=== PATIENT | male | born 1935 | race Caucasian/White ===

== ENCOUNTER 2018-03-25 08:53 | Emergency (ER) | payer MEDICARE, MEDICAID ==
[2018-03-25] MEDS ORDERED: HYDROmorphone INJ* 1 MG/ML CARPUJECT SYRINGE IV ONE (09:15)
[2018-03-25] MEDS ORDERED: PROCHLORPERAZINE INJ 5 MG/ML 2 ML VIAL IV PRN (09:15)
[2018-03-25] MEDS ORDERED: Cefepime(*) 1 GM in NS 0.9% 50 ML* 50 ML IVPB ONE (09:16)
[2018-03-25] MEDS ORDERED: PROCHLORPERAZINE INJ 5 MG/ML 2 ML VIAL ONE (09:21)
[2018-03-25] MEDS ORDERED: HYDROmorphone INJ* 2 MG/ML CARPUJECT SYRINGE ONE (09:21)
[2018-03-25] MEDS ORDERED: Cefepime(*) 1 GM in D5W 50 ML BAG* 50 ML IVPB ONE (09:29)
[2018-03-25] MEDS ORDERED: HYDROmorphone INJ* 2 MG/ML CARPUJECT SYRINGE IV SLOW PU ONE (09:36)
[2018-03-25 09:44] LABS: ABS Basophils 0.1 10^3/ul (0-0.2); ABS Eosinophils 0.2 10^3/ul (0-0.6); ABS Lymphocytes 1.3 10^3/ul (1.0-4.8); ABS Monocytes 0.5 10^3/ul (0-0.8); ABS Neutrophils 7.3 10^3/ul (1.5-7.7); ABS Nucleated RBC 0 10^3/ul; Eosinophil % 2.4 % (0-6); Hematocrit 35 % (42-52); Hemoglobin 11.9 g/dl (14.0-18.0); Lymphocyte % 14.1 % (25-47); Mean Corpuscular HGB Conc 34 g/dl (31-36); Mean Corpuscular Hemoglobin 30 pg (27-31); Mean Corpuscular Volume 89 fL (80-94); Mean Platelet Volume 7.4 um3 (7.4-10.4); Nucleated Red Blood Cells % 0.1; Platelet Count 297 10^3/ul (150-450); Red Blood Count 3.92 10^6/ul (4.00-5.40); Red Cell Distribution Width 15 % (10.5-15); White Blood Count 9.4 10^3/ul (3.5-10.8)
--- NOTE | 2018-03-25 09:45 | RAD ---
HISTORY: trauma to right foot COMPARISONS: None VIEWS: 3, Frontal, lateral, and oblique views of the right foot FINDINGS: BONE DENSITY: Normal. BONES: There is no displaced fracture. There are calcaneal enthesophytes. 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 ALIGNMENT: There is no dislocation. SOFT TISSUES: Unremarkable. OTHER FINDINGS: None. IMPRESSION: OSTEOARTHRITIS. NO ACUTE OSSEOUS INJURY. IF SYMPTOMS PERSIST, RECOMMEND REPEAT IMAGING.
[2018-03-25 09:57] LABS: EGFR Non-African American 72.7 (>60)
[2018-03-25] MEDS ORDERED: HYDROmorphone INJ* 2 MG/ML CARPUJECT SYRINGE IV SLOW PU PRN (10:59)
[2018-03-25 11:38] VITALS: BP 132/59
--- NOTE | 2018-03-25 12:07 | ED ---
Ifeanyi Norman Tariq, scribed for Abbe Monk MD on 03/25/18 at 0913 . Lower Extremity - HPI Summary HPI Summary: A 82 y/o male ALEXIS presents to the ED of right foot pain and erythema. Three weeks ago, during work, pt hit and bent his foot on the footrest of the dyson chair. Initially, it hurt, but pain became more severe 40 minutes later, currently, pain is per triage 8/10. In addition, pt notes erythema on the face and thinks he has a bacterial infection there. According to pt, he is borderline DM, however was not prescribed any medications. He has not taken any Abx in well over 2 years. Allergies are latex and Novocaine. - History of Current Complaint Chief Complaint: EDExtremityLower Stated Complaint: RT FOOT PAIN Time Seen by Provider: 03/25/18 09:03 Hx Obtained From: Patient Mechanism Of Injury: Blunt Trauma Onset of Pain: Days Onset/Duration: Worse Since - 3 weeks ago Severity Initially: Severe Severity Currently: Severe Pain Intensity: 8 Pain Scale Used: 0-10 Numeric Timing: Constant, Lasting Weeks Location: Is Discrete @ - Right foot. Associated Signs And Symptoms: Positive: Redness Aggravating Factor(s): Movement - Allergies/Home Medications Allergies/Adverse Reactions: Allergies Allergy/AdvReac Type Severity Reaction Status Date / Time latex Allergy Hives Verified 03/25/18 09:17 procaine [From Novocain] Allergy Itching Verified 03/25/18 09:17 Home Medications: Home Medications Lisinopril TAB* [Prinivil TAB*] 30 mg PO DAILY 03/25/18 [History Confirmed 03/25] PMH/Surg Hx/FS Hx/Imm Hx Cardiovascular History: Reports: Hx Hypertension Respiratory History: Denies: Hx Chronic Obstructive Pulmonary Disease (COPD) Infectious Disease History: No Infectious Disease History: Denies: Traveled Outside the [place] in Last 30 Days - Family History Known Family History: Positive: Other - CVA - Social History 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 Positive: Other - POSITIVE: Facial erythema All Other Systems Reviewed And Are Negative: Yes Physical Exam - Summary Physical Exam Summary: Appearance: The patient is well-nourished in no acute distress and in no acute pain. Skin: Scab area on dorsum of foot. Excoriating lesions on face and scalp. HEENT: The head is normocephalic and atraumatic. The pupils are equal and reactive. The conjunctivae are clear and without drainage. Nares are patent and without drainage. Mouth reveals moist mucous membranes and the throat is without erythema and exudate. The external ears are intact. The ear canals are patent and without drainage. The tympanic membranes are intact. Neck: The neck is supple with full range of motion and non-tender. There are no carotid bruits. There is no neck vein distension. No lymphadenopathy. Respiratory: Chest is non-tender. Lungs are clear to auscultation and breath sounds are symmetrical and equal. Cardiovascular: Heart is regular rate and rhythm. There is no murmur or rub auscultated. There is no peripheral edema and pulses are symmetrical and equal. Abdomen: The abdomen is soft and non-tender. There are normal bowel sounds heard in all four quadrants and there is no organomegaly palpated. Musculoskeletal: There is no back tenderness noted. Extremities are non-tender with full range of motion. There is good capillary refill. There is no peripheral edema or calf tenderness elicited. Erythematous distal dorsum of right foot. Neurological: Patient is alert and oriented to person, place and time. The patient has symmetrical motor strength in all four extremities. Cranial nerves are grossly intact. Deep tendon reflexes are symmetrical and equal in all four extremities. Psychiatric: The patient has an appropriate affect and does not exhibit any anxiety or depression. Triage Information Reviewed: Yes Vital Signs On Initial Exam: Initial Vitals Temp Pulse Resp BP Pulse Ox 98.8 F 74 22 143/91 99 03/25/18 08:57 03/25/18 08:57 03/25/18 08:57 03/25/18 08:57 03/25/18 08:57 Vital Signs Reviewed: Yes Diagnostics - Vital Signs Vital Signs Temp Pulse Resp BP Pulse Ox 03/25/18 08:57 98.8 F 74 22 143/91 99 - Laboratory Lab Results: Lab Results 03/25/18 03/25/18 03/25/18 Range/Units 09:33 09:33 09:33 WBC 9.4 (3.5-10.8) 10^3/ul RBC 3.92 L (4.00-5.40) 10^6/ul Hgb 11.9 L (14.0-18.0) g/dl Hct 35 L (42-52) % MCV 89 (80-94) fL MCH 30 (27-31) pg MCHC 34 (31-36) g/dl RDW 15 (10.5-15) % Plt Count 297 (150-450) 10^3/ul MPV 7.4 (7.4-10.4) um3 Neut % (Auto) 77.6 (38-83) % Lymph % (Auto) 14.1 L (25-47) % Sharkey % (Auto) 5.2 (0-7) % Eos % (Auto) 2.4 (0-6) % Baso % (Auto) 0.7 (0-2) % Absolute Neuts (auto) 7.3 (1.5-7.7) 10^3/ul Absolute Lymphs (auto) 1.3 (1.0-4.8) 10^3/ul Absolute Monos (auto) 0.5 (0-0.8) 10^3/ul Absolute Eos (auto) 0.2 (0-0.6) 10^3/ul Absolute Basos (auto) 0.1 (0-0.2) 10^3/ul Absolute Nucleated RBC 0 10^3/ul Nucleated RBC % 0.1 Sodium 138 (135-145) mmol/L Potassium 4.1 (3.5-5.0) mmol/L Chloride 107 (101-111) mmol/L Carbon Dioxide 23 (22-32) mmol/L Anion Gap 8 (2-11) mmol/L BUN 18 (6-24) mg/dL Creatinine 0.99 (0.67-1.17) mg/dL Est GFR ( Amer) 93.5 (>60) Est GFR (Non-Af Amer) 72.7 (>60) BUN/Creatinine Ratio 18.2 (8-20) Glucose 147 H (70-100) mg/dL Lactic Acid 0.8 (0.5-2.0) mmol/L Calcium 8.6 (8.6-10.3) mg/dL Total Bilirubin 0.30 (0.2-1.0) mg/dL AST 16 (13-39) U/L ALT 19 (7-52) U/L Alkaline Phosphatase 85 (34-104) U/L C-Reactive Protein 184.42 H (< 5.00) mg/L Total Protein 6.1 L (6.4-8.9) g/dL Albumin 2.8 L (3.2-5.2) g/dL Globulin 3.3 (2-4) g/dL Albumin/Globulin Ratio 0.8 L (1-3) Result Diagrams: 03/25/18 09:33 03/25/18 09:33 Lab Statement: Any lab studies that have been ordered have been reviewed, and results considered in the medical decision making process. - Radiology Foot XR Radiology Interpretation Completed By: Radiologist - OSTEOARTHRITIS. NO ACUTE OSSEOUS INJURY. IF SYMPTOMS PERSIST, RECOMMEND REPEAT IMAGING. ED PHYSICIAN REVIEWED THIS RADIOLOGY REPORT. Re-Evaluation - Re-Evaluation First Eval Re-Evaluation Time: 10:58 Comment: Discussed results and discharge Lower Extremity Course/Dx - Course Course Of Treatment: Mr. Montero presents complaining of a painful right foot. His foot was noted to be erythematous, swollen and warm to the touch. His white count was okay and he was not febrile but he did have a markedly elevated CRP. A plain film showed no sign of osteomyelitis. He was given cefepime here in the emergency department and discharged with a prescription for cephalexin and [place]. I recommended that he follow closely with his PCP this week. - Diagnoses Provider Diagnoses: Cellulitis Discharge - Sign-Out/Discharge Documenting (check all that apply): Discharge/Admit/Transfer - Discharge - Discharge Plan Condition: Stable Disposition: HOME Prescriptions: Cephalexin CAP* [Keflex CAP*] 500 mg PO QID #40 cap HYDROcodone/ACETAMIN 5-325 MG* [[place] 5-325 TAB*] 1 tab PO Q6H PRN #20 tab MDD 4 PRN Reason: Pain Patient Education Materials: Cellulitis (ED) Referrals: Campos Frye MD [Primary Care Provider] - 3 Days Additional Instructions: RETURN TO ED FOR ANY NEW OR WORSENING SYMPTOMS - Billing Disposition and Condition Condition: STABLE Disposition: Home The documentation as recorded by the Ifeanyi robles Tariq accurately reflects the service I personally performed and the decisions made by me, Abbe Monk MD.
== END 2018-03-25 11:40 | disposition home or self-care (01) ==
LOC: ED 08:53
DX: L03.90 Cellulitis, unspecified (principal)
CPT/HCPCS: 36415; 80053; 83605; 85025; 86140; 96365; 96375; 99283; J0692; J0780; J1170

== ENCOUNTER 2018-04-02 15:03 | Inpatient (IN) | payer MEDICARE, MEDICAID ==
[2018-04-02] MEDS ORDERED: HYDROcodone/ACETAMIN 5-325 MG* 1 TAB PO ONE (15:39)
[2018-04-02] MEDS ORDERED: Clindamycin 600 MG IVPREMIX(* 600 MG/50 ML SDV IV ONE (15:41)
--- NOTE | 2018-04-02 16:24 | RAD ---
INDICATION: Right foot ulcer x1 month (exact site not specified on requisition) COMPARISON: Foot radiograph dated March 25, 2018 that noted swelling and erythema at the dorsal foot across the metatarsal phalangeal joints TECHNIQUE: 3 views of the right foot were obtained. FINDINGS: The adequately corticated bones are properly aligned. Degenerative changes include sclerotic narrowing and marginal osteophyte formation involving the right great toe metatarsal phalangeal joint. Enthesophytes are noted the calcaneal tubercle. No radiographic findings characteristic of osteomyelitis are seen including cortical bony destruction. On the lateral view there is lucency overlying the dorsal foot at the level of the metatarsal heads. IMPRESSION: 1. DEGENERATIVE CHANGES DESCRIBED ABOVE WITHOUT RADIOGRAPHIC EVIDENCE OF OSTEOMYELITIS. 2. LUCENCY OVER THE DORSAL FOOT COULD CORRESPOND TO A SOFT TISSUE INFECTION. PLEASE CORRELATE TO LOCATION OF THE PATIENT'S FOOT ULCER. If the patient's symptoms persist, follow-up imaging is recommended.
[2018-04-02 16:38] LABS: EGFR Non-African American 47.6 (>60)
[2018-04-02 16:40] LABS: INR 1.02 (0.77-1.02)
[2018-04-02 16:58] LABS: Monocytes % 2 % (0-7)
[2018-04-02 17:00] LABS: Hematocrit 38 % (42-52); Hemoglobin 12.8 g/dl (14.0-18.0); Mean Corpuscular HGB Conc 34 g/dl (31-36); Mean Corpuscular Hemoglobin 30 pg (27-31); Mean Corpuscular Volume 88 fL (80-94); Platelet Count 619 10^3/ul (150-450); Red Blood Count 4.34 10^6/ul (4.00-5.40); Red Cell Distribution Width 15 % (10.5-15); White Blood Count 8.9 10^3/ul (3.5-10.8)
[2018-04-02 17:01] LABS: ABS Neutrophils 6.9 10^3/ul (1.5-7.7); Mean Platelet Volume 7.5 um3 (7.4-10.4)
--- NOTE | 2018-04-02 17:28 | ED ---
Jefferson Norman Tenzin, scribed for Ermias Felton on 04/02/18 at 1542 . Skin Complaint - HPI Summary HPI Summary: Pt is an 82 years old male sent by Dr. Vila to the ED for an infection on the right foot that has not improved for over a month. He is presenting to the ED today complaining of pain in the right foot where the infection is present and also of losing his appetite since taking the antibiotics for the infection. Pt rates the pain at 10/10 in severity currently at the ED. Pt reported that he has taken antibiotics since last week without any sign of improvements. Pt noted that that he did not take any medications for pain today. He notes that he has not eaten anything today. No alleviating or aggravating factors were noted. Pt reports that "I am borderline diabetic". - History of Current Complaint Chief Complaint: EDExtremityLower Time Seen by Provider: 04/02/18 15:23 Stated Complaint: RT FOOT/POSS INFECTION Hx Obtained From: Patient Onset/Duration: Still Present Timing: Lasting Weeks - over 4 weeks. Current Severity: Severe Pain Intensity: 10 Pain Scale Used: 0-10 Numeric Skin Location: Discrete - right foot. Aggravating Symptom(s): Nothing Alleviating Symptom(s): Nothing Associated Signs & Symptoms: Negative - Fever or chills. - Allergy/Home Medications Allergies/Adverse Reactions: Allergies Allergy/AdvReac Type Severity Reaction Status Date / Time latex Allergy Hives Verified 04/02/18 15:11 procaine [From Novocain] Allergy Itching Verified 04/02/18 15:11 Home Medications: Home Medications [id number] Es (Nf) [Excedrin Extra Strength 250-250-65 mg (NF)] 2 tab PO Q6H PRN 04/02/18 [History Confirmed 04/02/18] Multivit-Mins/Iron/Folic/Lycop [Centrum Ultra Mens] 1 tab PO DAILY 04/02/18 [ History Confirmed 04/02/18] oxyCODONE/Acetam5/325MG PREPAK [Percocet 5/325 TAB*] 1 tab PO Q6H PRN 04/02/18 [ History Confirmed 04/02/18] PMH/Surg Hx/FS Hx/Imm Hx Endocrine/Hematology History: Denies: Hx Diabetes Cardiovascular History: Reports: Hx Hypertension Respiratory History: Denies: Hx Chronic Obstructive Pulmonary Disease (COPD) Infectious Disease History: No Infectious Disease History: Denies: Traveled Outside the [place] in Last 30 Days - Family History Known Family History: Positive: Other - CVA - Social History Alcohol Use: Rare Substance Use Type: Reports: None Hx Tobacco Use: Yes Smoking Status (MU): Former Smoker Review of Systems Positive: Other - losing appetite from the antibiotics he has been prescribed. . Negative: Fever, Chills Positive: Other - pain in the right foot from the infection. Positive: Other - ulcer on the right foot. All Other Systems Reviewed And Are Negative: Yes Physical Exam - Summary Physical Exam Summary: Appearance: Well appearing, no pain distress Skin: warm, dry, 3/4 cm ulcers on the dorsum of the right foot with mild swelling. Head/face: normal Eyes: EOMI, MARA ENT: normal Neck: supple, non-tender Respiratory: CTA, breath sounds present Cardiovascular: RRR, pulses symmetrical Abdomen: non-tender, soft Bowel: present Musculoskeletal: Tenderness and swelling on the right foot with ulcer on the dorsum, Neuro: normal, sensory motor intact, A&Ox3 Triage Information Reviewed: Yes Vital Signs On Initial Exam: Initial Vitals Temp Pulse Resp BP Pulse Ox 97.8 F 66 17 119/65 100 04/02/18 15:05 04/02/18 15:05 04/02/18 15:05 04/02/18 15:05 04/02/18 15:05 Vital Signs Reviewed: Yes Diagnostics - Vital Signs Vital Signs Temp Pulse Resp BP Pulse Ox 04/02/18 15:24 59 99 04/02/18 15:23 57 99 04/02/18 15:05 97.8 F 66 17 119/65 100 - Laboratory Lab Results: Lab Results 04/02/18 04/02/18 04/02/18 Range/Units 16:10 16:10 16:10 WBC 8.9 (3.5-10.8) 10^3/ul RBC 4.34 (4.00-5.40) 10^6/ul Hgb 12.8 L (14.0-18.0) g/dl Hct 38 L (42-52) % MCV 88 (80-94) fL MCH 30 (27-31) pg MCHC 34 (31-36) g/dl RDW 15 (10.5-15) % Plt Count 619 H D (150-450) 10^3/ul MPV 7.5 (7.4-10.4) um3 Absolute Neuts (auto) 6.9 (1.5-7.7) 10^3/ul Immature Gran % 10 H (0-9) % Neutrophils % 75 (38-83) % Band Neutrophils % 10 H (0-8) % Lymphocytes % 10 L (25-47) % Reactive Lymphs % 1 (0-6) % Monocytes % 2 (0-7) % Eosinophils % 2 (0-6) % Basophils % 0 (0-2) % Abs Neuts (Manual) 6.7 (1.5-7.7) 10^3/ul Abs Lymphs (Manual) 0.9 L (1.0-4.8) 10^3/ul Abs Monocytes (Manual) 0.2 (0-0.8) 10^3/ul Absolute Eos (Manual) 0.2 (0-0.6) 10^3/ul Abs Basophils (Manual) 0 (0-0.2) 10^3/ul Normal RBC Morphology Normal (Normal) INR (Anticoag Therapy) 1.02 (0.77-1.02) APTT 32.8 (26.0-36.3) seconds Sodium 138 (135-145) mmol/L Potassium 4.6 (3.5-5.0) mmol/L Chloride 102 (101-111) mmol/L Carbon Dioxide 25 (22-32) mmol/L Anion Gap 11 (2-11) mmol/L BUN 20 (6-24) mg/dL Creatinine 1.43 H (0.67-1.17) mg/dL Est GFR ( Amer) 57.6 (>60) Est GFR (Non-Af Amer) 47.6 (>60) BUN/Creatinine Ratio 14.0 (8-20) Glucose 100 (70-100) mg/dL Lactic Acid (0.5-2.0) mmol/L Calcium 9.5 (8.6-10.3) mg/dL Total Bilirubin 0.20 (0.2-1.0) mg/dL AST 32 (13-39) U/L ALT 29 (7-52) U/L Alkaline Phosphatase 159 H (34-104) U/L Total Protein 7.6 (6.4-8.9) g/dL Albumin 3.6 (3.2-5.2) g/dL Globulin 4.0 (2-4) g/dL Albumin/Globulin Ratio 0.9 L (1-3) 06/25/18 Range/Units 16:10 WBC (3.5-10.8) 10^3/ul RBC (4.00-5.40) 10^6/ul Hgb (14.0-18.0) g/dl Hct (42-52) % MCV (80-94) fL MCH (27-31) pg MCHC (31-36) g/dl RDW (10.5-15) % Plt Count (150-450) 10^3/ul MPV (7.4-10.4) um3 Absolute Neuts (auto) (1.5-7.7) 10^3/ul Immature Gran % (0-9) % Neutrophils % (38-83) % Band Neutrophils % (0-8) % Lymphocytes % (25-47) % Reactive Lymphs % (0-6) % Monocytes % (0-7) % Eosinophils % (0-6) % Basophils % (0-2) % Abs Neuts (Manual) (1.5-7.7) 10^3/ul Abs Lymphs (Manual) (1.0-4.8) 10^3/ul Abs Monocytes (Manual) (0-0.8) 10^3/ul Absolute Eos (Manual) (0-0.6) 10^3/ul Abs Basophils (Manual) (0-0.2) 10^3/ul Normal RBC Morphology (Normal) INR (Anticoag Therapy) (0.77-1.02) APTT (26.0-36.3) seconds Sodium (135-145) mmol/L Potassium (3.5-5.0) mmol/L Chloride (101-111) mmol/L Carbon Dioxide (22-32) mmol/L Anion Gap (2-11) mmol/L BUN (6-24) mg/dL Creatinine (0.67-1.17) mg/dL Est GFR ( Amer) (>60) Est GFR (Non-Af Amer) (>60) BUN/Creatinine Ratio (8-20) Glucose (70-100) mg/dL Lactic Acid 1.3 (0.5-2.0) mmol/L Calcium (8.6-10.3) mg/dL Total Bilirubin (0.2-1.0) mg/dL AST (13-39) U/L ALT (7-52) U/L Alkaline Phosphatase (34-104) U/L Total Protein (6.4-8.9) g/dL Albumin (3.2-5.2) g/dL Globulin (2-4) g/dL Albumin/Globulin Ratio (1-3) Result Diagrams: 04/02/18 16:10 04/02/18 16:10 Lab Statement: Any lab studies that have been ordered have been reviewed, and results considered in the medical decision making process. - Radiology FOOT X RAY Radiology Interpretation Completed By: Radiologist - IMPRESSION: 1. DEGENERATIVE CHANGES DESCRIBED ABOVE WITHOUT RADIOGRAPHIC EVIDENCE OF OSTEOMYELITIS. 2. LUCENCY OVER THE DORSAL FOOT COULD CORRESPOND TO A SOFT TISSUE INFECTION. PLEASE CORRELATE TO LOCATION OF THE PATIENT'S FOOT ULCER. If the patient's symptoms persist, follow-up imaging is recommended. Course/Dx - Course Course Of Treatment: Pt is an 82 years old male sent by Dr. Vila to the ED for an infection on the right foot that has not improved for over a month. Pt reported that he was prescribed with antibiotics since last week without any sign of improvements. Bloodwork and UA is obtained. Right foot X ray is taken. Consulted with hospitalist Dr. Swann and pt will be admitted. - Differential Diagnoses - Skin Complaint Differential Diagnoses: Cellulitis, Other - ulcer foot/osteomyelitis - Diagnoses Provider Diagnoses: Cellulitis of foot, right Discharge - Sign-Out/Discharge Documenting (check all that apply): Discharge/Admit/Transfer - Admitted. - Discharge Plan Condition: Stable Disposition: ADMITTED TO [facility] Referrals: Campos Frye MD [Primary Care Provider] - - Billing Disposition and Condition Condition: STABLE Disposition: Admitted to [facility] The documentation as recorded by the Jefferson robles Tenzin accurately reflects the service I personally performed and the decisions made by , Ermias Felton.
[2018-04-02] MEDS ORDERED: Morphine VIAL* 4 MG/ML VIAL (1 ml vial) IV PRN (17:40)
[2018-04-02] MEDS ORDERED: hydrALAZINE IV* 20 MG/ML VIAL IV SLOW PU PRN (17:57)
[2018-04-02] MEDS ORDERED: Vancomycin per Pharmacy* NOTE FOLLOW UP SCH (18:00)
[2018-04-02] MEDS ORDERED: Vancomycin(*) 1,250 MG in NS 0.9% 250 ML* 250 ML IVPB ONE (19:30)
[2018-04-02] MEDS: oxyCODONE/Acetamin 5/325 MG* TAB PO PRN (21:45)
[2018-04-02] MEDS: Heparin VIAL(*) 5000 UNITS/ML VIAL (FIVE THOUSAND) SUBCUT SCH (21:54)
--- NOTE | 2018-04-02 23:42 | HP ---
HOSPITAL MEDICINE HISTORY AND PHYSICAL: DATE OF ADMISSION: 04/02/18 ATTENDING PHYSICIAN: Dr. Lai Swann * (dictation provided by Esther Nunes NP ). CHIEF COMPLAINT: Non-healing right foot ulcer. HISTORY OF PRESENT ILLNESS: Mr. Montero is an 82-year-old male with a past medical history of hypertension, who presents today to the hospital with a 1- month history of a right foot ulcer. Mr. Montero states he first started having problems about 3 to 4 weeks ago, at that time he followed with his primary care physician, Dr. Frye and was started on Keflex. He notes that he has followed up about [address] Frye and had taken about half of a prescription for Keflex when he was referred to [facility] for poor healing and further evaluation. He was seen on 03/28/[address] Pereira in followup of an emergency room visit for the same ulcer. At that point, he had I and D of an abscess and packing and the patient was continued on Keflex. The patient was seen again on 03/29/18 in followup and cultures were preliminarily growing Staph aureus. The patient was seen again on 03/30/18, and he was switched to Bactrim and referred to Dr. Wilson's office for consultation per orthopedic services. The patient was seen at Dr. Wilson's office today, 04/02. Despite being on Bactrim for MRSA the foot continued to worsen. The patient denies fevers or chills. Dr. Wilson recommended that the patient be admitted to [facility] for more expeditious workup including an MRI, ABIs and IV antibiotics. In addition, Dr. Tinajero was consulted from Infectious Diseases. In the emergency room, Mr. Montero had labs that showed that his white blood cell count was 8.9. His CRP and ESR are pending. He had a grossly infected right foot. He had x-ray that showed no evidence of osteomyelitis. His vital signs are stable. He is afebrile. PAST MEDICAL HISTORY: 1. Hypertension. 2. Reported borderline diabetes. MEDICATIONS: 1. Excedrin p.r.n. 2. Lisinopril 30 mg p.o. daily. 3. Bactrim DS 1 tab p.o. b.i.d. 4. Oxycodone/acetaminophen 5/325 mg 1 tab p.o. every 6 hours p.r.n. pain. ALLERGIES: To LATEX and PROCAINE. FAMILY HISTORY: Reviewed and noncontributory. SOCIAL HISTORY: No report of drug use. The patient drinks wine, but not on a nightly basis and he has not drunk for over a month since his foot became infected. Tobacco use, the patient reports he smokes about 1 pack of cigarettes every 4 to 5 days. He reports that his friend, Miguel Scott, will be healthcare proxy. REVIEW OF SYSTEMS: A 14-point review of systems was completed with Mr. Montero and all those not mentioned above were negative. PHYSICAL EXAMINATION GENERAL: Mr. Montero is sitting in the bed. He is in no acute distress. VITAL SIGNS: Temperature 97.8, pulse rate 59, respiratory rate 17, O2 saturation is 99% on room air, blood pressure 130/66. LUNGS: Clear to auscultation bilaterally with no accessory muscle use and good aeration. HEART: S1, S2 with systolic murmur at the fifth intercostal space and mid clavicular line radiating into the axilla and is regular. ABDOMEN: Soft, nontender with bowel sounds positive x4. EXTREMITIES: No cyanosis. Positive for lower extremity edema in and around the right foot only. NEURO: He is alert. He is oriented x3. He moves all extremities equally. There is no facial asymmetry or focal weakness. Extraocular movements are intact. SKIN: The patient has multiple healing excoriations to his face. There is a couple scattered on his back, but none noted on his torso or legs. He has about 2 x 1 inch ulceration to the dorsal aspect of his right foot at the first MTP of the great toe. There is a surrounding dark red to dark purple erythema. The foot is warm. I am not able to assess the fine pulses, but again the foot is warm, there is good sensation, good motion. The left foot is cool to touch after I have taken off the sock. The pulses are 2+. DIAGNOSTIC STUDIES/LAB DATA: Sodium 138, potassium 4.6, chloride 102, serum bicarbonate 25, BUN 20, creatinine 1.43, lactic acid 1.3. WBC 8.9, hemoglobin 12.8, hematocrit 38, platelet count 619. ASSESSMENT: Mr. Montero is an 82-year-old male with a past medical history of hypertension, who presents today to the hospital with a nonhealing right foot ulcer after 1 month of therapy, found to have Methicillin-resistant Staphylococcus aureus infection outpatient with no improvement on appropriate therapy with Bactrim. Our plans are for inpatient admission for the followin. Right foot ulcer. The patient will be treated with vancomycin. Appreciate consultation from Dr. Wilson and his team, who will be following the patient inpatient. I have also consulted with Dr. Tinajero from Infectious Diseases. Dr. Wilson has also recommended ordering ABIs, which have been done, and we have also ordered MRI of that foot. At this time, the patient showed no evidence of systemic illness. His blood cultures have been drawn. If his blood cultures are positive, we will pursue echocardiogram and further workup as needed. 2. Hypertension. Plan to hold lisinopril for now given new elevation in creatinine. 3. Acute kidney injury. The patient's creatinine is 1.43, which is up from his baseline. I will plan to hold lisinopril. The patient will have hydralazine p.r.n. for elevated BP and we can resume lisinopril when and if his creatinine improves. I will add on urine sodium and creatinine to further assess his kidney function. 4. Question mild diabetes. Per the patient report, he does not have a diagnosis of diabetes, but I am checking hemoglobin A1c. His glucose today is 100 on random check. 5. Code status is full code. TIME SPENT: Approximately 60 minutes were spent in the admission of this patient, more than half time spent with the patient at the bedside reviewing the events leading up to this hospitalization, performing the physical examination and reviewing my plan of care. ESTHER NUNES, REUBEN [id number]/[facility] #: [id number] MRAIA E
[2018-04-02] MEDS ORDERED: Calcium Carbonate CHEW TAB* 500 MG (TUMS) PO ONE (23:49)
[2018-04-03] MEDS ORDERED: Ondansetron 40 MG VIAL* 2 MG/ML 20 ML VIAL IV PRN (01:50)
[2018-04-03] MEDS: Omeprazole CAP* 20 MG PO SCH ×2 (02:19→05:57)
[2018-04-03] MEDS: oxyCODONE/Acetamin 5/325 MG* TAB PO PRN ×4 (05:57→21:02)
[2018-04-03] MEDS: Heparin VIAL(*) 5000 UNITS/ML VIAL (FIVE THOUSAND) SUBCUT SCH ×3 (05:58→22:24)
[2018-04-03] MEDS ORDERED: Omeprazole CAP* 20 MG PO SCH (06:00)
[2018-04-03 08:34] LABS: ABS Basophils 0.1 10^3/ul (0-0.2); ABS Eosinophils 0.3 10^3/ul (0-0.6); ABS Lymphocytes 1.6 10^3/ul (1.0-4.8); ABS Monocytes 0.5 10^3/ul (0-0.8); ABS Neutrophils 5.3 10^3/ul (1.5-7.7); ABS Nucleated RBC 0 10^3/ul; Eosinophil % 3.7 % (0-6); Hematocrit 33 % (42-52); Hemoglobin 11.1 g/dl (14.0-18.0); Lymphocyte % 20.5 % (25-47); Mean Corpuscular HGB Conc 34 g/dl (31-36); Mean Corpuscular Hemoglobin 30 pg (27-31); Mean Corpuscular Volume 88 fL (80-94); Mean Platelet Volume 7.4 um3 (7.4-10.4); Nucleated Red Blood Cells % 0; Platelet Count 460 10^3/ul (150-450); Red Blood Count 3.76 10^6/ul (4.00-5.40); Red Cell Distribution Width 15 % (10.5-15); White Blood Count 7.8 10^3/ul (3.5-10.8)
[2018-04-03 08:55] LABS: EGFR Non-African American 51.7 (>60)
[2018-04-03] MEDS ORDERED: Lisinopril TAB* 10 MG PO SCH (09:00)
--- NOTE | 2018-04-03 13:25 | PN ---
Subjective Date of Service: 04/03/18 Interval History: Patient seen and examined at bedside. Denies fever, chills, shortness of breath , chest discomfort, N/V/D. Pt states that he has been dealing with this foot ulcer for a few months. He declined to have the dressing removed so I could evaluate the wound. Family History: Unchanged from Admission Social History: Unchanged from Admission Past Medical History: Unchanged from Admission Objective Active Medications: Acetaminophen (Tylenol Tab*) 650 mg PO Q6H PRN Reason: Pain/fever Heparin Sodium (Porcine) (Heparin Vial(*)) 5,000 units SUBCUT Q8HR [facility] Hydralazine HCl (Apresoline Iv*) 5 mg IV SLOW PU Q6H PRN Reason: SBP > 180 Vancomycin HCl 1,000 mg/ (Sodium Chloride) 250 mls @ 166.667 mls/hr IVPB Q24H [facility] Morphine Sulfate (Morphine Vial*) 4 mg IV Q4H PRN Reason: PAIN Omeprazole (Prilosec Cap*) 20 mg PO DAILY@0600 [facility] Ondansetron HCl (Zofran 40 Mg Vial*) 4 mg IV Q6H PRN Reason: NAUSEA Oxycodone/Acetaminophen (Percocet 5/325 Tab*) 1 tab PO Q4H PRNReason: PAIN Oxycodone/Acetaminophen (Percocet 5/325 Tab*) 2 tab PO Q4H PRN Reason: PAIN Pharmacy Consult (Vancomycin Per Pharmacy*) 1 note FOLLOW UP .VANC PER PHARMACY [facility] Pharmacy Profile Note (Vancomycin Trough Check) 1 note FOLLOW UP 2029 Stop: 04/05/18 20:31 Vital Signs - 8 hr 04/03/18 04/03/18 04/03/18 05:57 07:23 10:11 Temperature 98.1 F Pulse Rate 56 Respiratory 18 14 18 Rate Blood Pressure 100/53 (mmHg) O2 Sat by Pulse 100 Oximetry Oxygen Devices in Use Now: None Appearance: NAD, sitting up on the side of the bed Ears/Nose/Mouth/Throat: Mucous Membranes Moist Respiratory: Symmetrical Chest Expansion and Respiratory Effort, Clear to Auscultation Cardiovascular: NL Sounds; No Murmurs; No JVD, RRR Abdominal: NL Sounds; No Tenderness; No Distention Extremities: No Edema Skin: - - Dressing to right foot clean, dry and intact Neurological: Alert and Oriented x 3, NL Muscle Strength and Tone Lines/Tubes/Other Access: Clean, Dry and Intact Peripheral IV - site benign Nutrition: Taking PO's Result Diagrams: 04/03/18 08:22 04/03/18 08:22 Additional Lab and Data: . Microbiology and Other Data: Microbiology 04/02/18 16:10 Gram Stain - Final Foot Right Assess/Plan/Problems-Billing Assessment: Mr. Montero is an 82 yo male with PMH significant for HTN and borderline DM who presented to the hospital with a right foot non-healing ulcer. - Patient Problems (1) Right foot ulcer Code(s): L97.519 - NON-PRS CHRONIC ULCER OTH PRT RIGHT FOOT W UNSP SEVERITY SNOMED Code(s): 41306199 Comment: - Present at least 1 month, possibly longer - Borderline DM - Afebrile and no leukocytosos - Blood cultures no growth day 1 - Ortho consult, input appreciated - ID consult, pending - MRI and ABIs pending - Continue Vanco (2) LINK (acute kidney injury) Code(s): N17.9 - ACUTE KIDNEY FAILURE, UNSPECIFIED SNOMED Code(s): 90045996 Comment: - Slight improvement - With mild hyperkalemia - Will give gentle IVFs overnight - Continue to hold lisinopril and avoid nephrotoxic medications (3) Borderline diabetes mellitus Code(s): R73.03 - PREDIABETES SNOMED Code(s): 621034962 Comment: - HgA1C 6.9 (4) HTN (hypertension) Code(s): I10 - ESSENTIAL (PRIMARY) HYPERTENSION SNOMED Code(s): 06343577 Comment: - Mostly normotensive, SBP 90-130's - Continue to hold lisinopril in the setting of LINK - Continue hydralazine PRN (5) DVT prophylaxis Code(s): CID2372 - SNOMED Code(s): 548686113 Comment: - SQ heparin (6) Full code status Code(s): Z78.9 - OTHER SPECIFIED HEALTH STATUS SNOMED Code(s): 689574203 Status and Disposition: Inpatient. Discharge to home when medically stable.
--- NOTE | 2018-04-03 14:58 | PN ---
Progress Note - Progress Note Date of Service: 04/03/18 SOAP: Subjective: [Pt was seen this afternoon while walking back to his bed from the bathroom. Pt states that his pain is much improved. He feels much better and feels more awake. Pt denies any chest pain, SOB, numbness, tingling, nausea or vomiting. ] Objective: [General: Awake, alert and oriented, NAD, skin of the face has multiple abrasions present. MSK, RLE: Inspection of the right foot reveals a dressing that is clean, dry and intact. +df/ pf. Able to slightly wiggle toes. Sensation is intact to pain in the right foot. calf is soft and non tender. ] Vital Signs Temp 98.1 F 04/03/18 07:23 Pulse 56 04/03/18 07:23 Resp 18 04/03/18 14:22 BP 100/53 04/03/18 07:23 Pulse Ox 100 04/03/18 07:23 Intake & Output 04/02/18 04/03/18 04/03/18 18:59 06:59 18:59 Intake Total 50 280 640 Output Total 0 Balance 50 280 640 Weight 162 lb 145 lb 11.2 oz Intake: IV Fluids 50 30 NS (0.9%) 30 IVPB 250 ABX - VANCOMYCIN 250 Oral 0 640 Output: Urine 0 Other: # Bowel Movements 0 1 Estimated Stool Amount Medium # Voids 0 Assessment: [Right foot infection] Plan: [- Continue with current anticoagulation - MRI and CATHRYN today - Continue with current abx - Continue with current pain medication. ]
--- NOTE | 2018-04-03 15:28 | RAD ---
INDICATION: 82-year-old with nonhealing right foot ulcer - RUFUS read COMPARISON: None TECHNIQUE: Ankle brachial indices were calculated with Doppler waveform analysis of the dorsalis pedis and posterior tibial arteries. The right ankle-brachial index is calculated at 1.0. Waveform analysis shows a biphasic and mildly dampened right posterior tibial waveform and a normal amplitude biphasic right dorsalis pedis waveform. The left ankle-brachial index is calculated at 1.0. Waveform analysis shows mildly dampened triphasic waveforms . Toe brachial indices are mildly depressed bilaterally measuring 0.6 in writing 0.6 on the left IMPRESSION: THERE IS MILD BILATERAL PERIPHERAL VASCULAR DISEASE ON THE BASIS OF WAVEFORM ANALYSIS BUT THE ANKLE-BRACHIAL INDICES FALL WITHIN NORMAL LIMITS MEASURING 1.0 BILATERALLY.
--- NOTE | 2018-04-03 16:09 | RAD ---
Indication: RIGHT foot MRSA infection. Wound for one month. Comparison: April 03, 2018 ankle-brachial indices and April 02, 2018 RIGHT foot radiographs. Technique: [employer] 1.5 Claritza [id number] with GEM suite. Noncontrast MRI RIGHT foot. Report: Shallow soft tissue ulcer dorsal surface of the forefoot at level of first metatarsal phalangeal joint. Contiguous with the soft tissue ulcer there is extensive superficial and deep soft tissue edema and irregularly margined loculated T2 hyperintense 4.3 cm AP by 2.3 cm transverse by 2.4 cm cephalocaudal fluid collection within the intrinsic musculature of the foot subjacent to the first and second metatarsals concerning for abscess. This fluid collection is deep to the plantar flexor tendons. There is T2 hyperintensity at the first metatarsal, medial lateral first metatarsal phalangeal joint sesamoid bones, and proximal phalanx with corresponding partial loss of normal T1 marrow hyperintensity. No fracture evident. 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 Smith images saved on the [facility] PACS. IMPRESSION: The constellation of findings given the clinical context is most consistent with superficial and deep soft tissue infection subjacent to the dorsal skin ulcer with contiguous osteomyelitis involving the first metatarsal, sesamoid bones, and first proximal phalanx and loculated soft tissue abscess collection estimated at approximate 13 mL total volume.
[2018-04-03] MEDS: Vancomycin(*) 1,000 MG in NS 0.9% 250 ML* 250 ML IVPB SCH (21:01)
--- NOTE | 2018-04-04 00:15 | CONS ---
CONSULTATION REPORT: DATE OF CONSULT: 04/03/18. REQUESTING PHYSICIAN: Dr. Wilson. CONSULTING SERVICE: Infectious Disease. REASON FOR CONSULT: Right foot infection. IMPRESSION: 1. Acute osteomyelitis, right distal first metatarsal and proximal phalanx with associated cellulitis and chronic non-pressure related wound. Given the sudden onset of initial symptoms and the location, underlying gout is a consideration. He now though has the aforementioned infections due to methicillin resistant Staphylococcus aureus. 2. Peripheral vascular disease. RECOMMENDATIONS: Agree with vancomycin goal trough 15 to 20. Based on the MRI findings including soft tissue involvement and degree of the wound, he would need that in conjunction with at least debridement. He is considering his options currently. Will plan on a longer course of IV antibiotics probably at the infusion center since he lives across the road. HISTORY OF PRESENT ILLNESS: This is an 82-year-old man, admitted with a right foot infection. About a month ago, he bumped his foot and then a couple of hours later noticed severe redness and pain adjacent to the first toe, so bad that he could not bear weight. He was seen by his primary doctor, prescribed Keflex without much improvement, eventually got to see Orthopedics after an ER stay. He had incision and debridement of the wound there and the culture was sent, grew MRSA. He was eventually switched to Bactrim, saw Dr. Wilson. He was directed to the hospital yesterday. Started on vancomycin, had an MRI, showed osteomyelitis, cellulitis, abscess about the first MTP joint. He has significant pain in that foot. He has no neuropathy or diabetes that he knows of. Never been told he had gout in the past. No fever here. PAST MEDICAL HISTORY: Hypertension. ALLERGIES: To LATEX and PROCAINE. MEDICATIONS: 1. Tylenol. 2. Calcium. 3. Heparin subcutaneous injection. 4. Omeprazole. 5. Vicodin as needed. 6. Vancomycin 1 g every 24 hours. 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 He lives in [address]. No sick contacts. FAMILY HISTORY: No recurrent infections. REVIEW OF SYSTEMS: All negative except as noted above in the history of present illness, 14-point review. PHYSICAL EXAM: Vital Signs: Temperature 37, heart rate 55, respiratory rate 18 , blood pressure 100/50, oxygen saturation 97% on room air. In general, he is awake, not in distress. Neurologic: He is oriented x3. Follows all commands, moves all extremities. Sensation is intact to light touch in both feet. HEENT : There is no thrush. Neck is supple without mass. Heart has regular rate and rhythm without murmurs, rubs, or gallops. Lungs are clear to auscultation bilaterally. Abdomen: Soft, nontender, nondistended. There are bowel sounds present. Skin: There is no rash or splinter hemorrhages. Musculoskeletal: There is no spine tenderness to palpation. On right foot dorsal MTP joint, there is a centimeter ulceration with surrounding erythema, edema and tenderness with some seropurulent drainage. Erythema up into the great toe. LABORATORY DATA: White blood cell count 7, hemoglobin 11, platelets 460. Creatinine is 1.3. CRP 50. Please see impressions and recommendations outlined above, which I have discussed with Dr. Wilson. Thanks for asking me to see Mr. Montero in consultation. [id number]/CPS #: [id number] MTDD
[2018-04-04] MEDS: oxyCODONE/Acetamin 5/325 MG* TAB PO PRN ×4 (02:35→20:05)
[2018-04-04] MEDS: Heparin VIAL(*) 5000 UNITS/ML VIAL (FIVE THOUSAND) SUBCUT SCH ×3 (06:13→22:12)
[2018-04-04] MEDS: Omeprazole CAP* 20 MG PO SCH (06:13)
[2018-04-04] MEDS: NS 0.9% 1000 ML* 1,000 ML IV SCH (06:44)
[2018-04-04 07:17] LABS: EGFR Non-African American 47.6 (>60)
--- NOTE | 2018-04-04 10:37 | PN ---
Progress Note - Progress Note Date of Service: 04/04/18 SOAP: Subjective: CC: right foot infection HPI: 82 yo man with CKD, right foot ulcer, pain, redness. Pain a little better keeping elevated. No fever, rash, or diarrhea. Pondering his surgical options. Objective: Vital Signs Temp 36.2 C 04/04/18 07:56 Pulse 51 04/04/18 07:56 Resp 16 04/04/18 08:48 BP 109/53 04/04/18 07:56 Pulse Ox 98 04/04/18 07:56 Intake & Output 04/03/18 04/04/18 04/04/18 18:59 06:59 18:59 Intake Total 990 830 Output Total 0 Balance 990 830 Weight 145 lb 11.2 oz Intake: IV Fluids 30 NS (0.9%) 30 IVPB 250 ABX - VANCOMYCIN 250 Oral 990 550 Output: Urine 0 Other: Estimated Void Medium # Bowel Movements 1 1 Estimated Stool Amount Medium Small # Voids 1 Gen:awake, no distress HEENT: no thrush Heart:RRR no murmur Lungs:CTA BL Abd:+BS NTND soft Skin: no rash MSK: R dorsal 1st MTP ulcer with surrounding erythema and tenderness Laboratory Results - last 24 hr 04/02/18 04/04/18 16:13 06:38 Sodium 139 Potassium 5.2 H Chloride 109 Carbon Dioxide 24 Anion Gap 6 BUN 25 H Creatinine 1.43 H Est GFR ( Amer) 57.6 Est GFR (Non-Af Amer) 47.6 BUN/Creatinine Ratio 17.5 Glucose 99 Hemoglobin A1c 6.9 H Calcium 8.4 L Assessment: 1. 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 chronic kidney disease 3. T2DM Plan: 1. continue vancomycin goal tr 15-20, he is considering I&D vs amp; IV antibiotics to follow in either case 35 minutes floor time >50% face to face in counseling regarding options to preserve foot
--- NOTE | 2018-04-04 10:37 | PN ---
Progress Note - Progress Note Date of Service: 04/04/18 Note: I saw and examined Federico this morning. Please see my office note from Monday for the full history and physical examination. In brief, he has had a worsening right foot infection for about a month. This has been worsening despite oral antibiotics and an in-office I&D by Dr. Pereira. I sent him to the emergency room on Monday for an admission, IV antibiotics, infectious disease consult, ABIs, and an MRI. His CRP is 50. His MRI does show osteomyelitis of the first toe and first metatarsal, as well as a deep abscess. His CATHRYN is 1.0, but the toe brachial index is 0.6. I spoke with Federico and his partner at length about the situation. This is a serious infection, which I explained in detail, both in the hospital as well as in the office on Monday. The MRI does show what I was worried about, which is a deep abscess and osteomyelitis. We discussed various treatment options for a long time today. We did discuss treatment with just antibiotics, which I feel is insufficient, given the abscess. We also discussed performing an irrigation and debridement of the ulcer and abscess and placement of a wound VAC , followed by a course of IV antibiotics. I did explain that sometimes this is insufficient in the setting of osteomyelitis, but does give him a chance of maintaining the first ray. We also discussed a first ray amputation. We spent a long time discussing the pros/cons and risks/benefits of each of these options. After this discussion, he was leaning towards an irrigation and debridement and placement of a wound VAC, followed by IV antibiotics. I did explain at length, that there is a good chance the infection will not fully be cleared with this course, given the presence of osteomyelitis. He did understand this. He will think about it further, and discuss further with his partner, and let me know tomorrow what his final decision is. For now, we will plan on an irrigation and debridement tomorrow. If he decides that he does want to move forward with a first ray amputation, then we would do this instead tomorrow. Please make him n.p.o. at midnight tonight, for the OR tomorrow. I do appreciate his great medical care as well as Dr. Tinajero's input from infectious diseases. Aung Royal MD
--- NOTE | 2018-04-04 16:06 | PN ---
Subjective Date of Service: 04/04/18 Interval History: Seen with partner at bedside Leaning away from amputation tomorrow Pain controlled with meds. Denies CP/SOB Does not like the beeping associated with fluids. Family History: Unchanged from Admission Social History: Unchanged from Admission Past Medical History: Unchanged from Admission Objective Active Medications: Acetaminophen (Tylenol Tab*) 650 mg PO Q6H PRN PRN Reason: Pain/fever Buspirone HCl (Buspar Tab*) 10 mg PO TID [facility] Heparin Sodium (Porcine) (Heparin Vial(*)) 5,000 units SUBCUT Q8HR [facility] Stop: 04/04/18 23:59 Last Admin: 04/04/18 14:24 Dose: 5,000 units Hydralazine HCl (Apresoline Iv*) 5 mg IV SLOW PU Q6H PRN PRN Reason: SBP > 180 Vancomycin HCl 1,000 mg/ (Sodium Chloride) 250 mls @ 166.667 mls/hr IVPB Q24H [facility] Last Admin: 04/03/18 21:01 Dose: 166.667 mls/hr Sodium Chloride (Ns 0.9% 1000 Ml*) 1,000 mls @ 75 mls/hr IV PER RATE [facility] Last Admin: 04/04/18 06:44 Dose: 75 mls/hr Morphine Sulfate (Morphine Vial*) 4 mg IV Q4H PRN PRN Reason: PAIN Last Admin: 04/02/18 23:58 Dose: 4 mg Omeprazole (Prilosec Cap*) 20 mg PO DAILY@0600 [facility] Last Admin: 04/04/18 06:13 Dose: 20 mg Ondansetron HCl (Zofran 40 Mg Vial*) 4 mg IV Q6H PRN PRN Reason: NAUSEA Last Admin: 04/03/18 02:19 Dose: 4 mg Oxycodone/Acetaminophen (Percocet 5/325 Tab*) 1 tab PO Q4H PRN PRN Reason: PAIN Last Admin: 04/03/18 14:22 Dose: 1 tab Oxycodone/Acetaminophen (Percocet 5/325 Tab*) 2 tab PO Q4H PRN PRN Reason: PAIN Last Admin: 04/04/18 15:20 Dose: 2 tab Pharmacy Consult (Vancomycin Per Pharmacy*) 1 note FOLLOW UP .VANC PER PHARMACY [facility] Pharmacy Profile Note (Vancomycin Trough Check) 1 note FOLLOW UP 2029 ONE Stop: 04/05/18 20:31 Vital Signs - 8 hr 04/04/18 04/04/18 04/04/18 08:48 10:51 11:42 Temperature 98.1 F Pulse Rate 57 Respiratory 16 14 17 Rate Blood Pressure 109/64 (mmHg) O2 Sat by Pulse 98 Oximetry 04/04/18 15:20 Temperature Pulse Rate Respiratory 16 Rate Blood Pressure (mmHg) O2 Sat by Pulse Oximetry Oxygen Devices in Use Now: None Appearance: NAD Eyes: No Scleral Icterus, PERRLA Ears/Nose/Mouth/Throat: NL Teeth, Lips, Gums, Clear Oropharnyx, Mucous Membranes Moist Neck: NL Appearance and Movements; NL JVP, Trachea Midline Respiratory: Symmetrical Chest Expansion and Respiratory Effort, Clear to Auscultation Cardiovascular: RRR Abdominal: NL Sounds; No Tenderness; No Distention, No Hepatosplenomegaly Lymphatic: No Cervical Adenopathy Extremities: No Edema Skin: - - right foot wrapped, face with multiple exoriations Neurological: Alert and Oriented x 3 Result Diagrams: 04/03/18 08:22 04/04/18 06:38 Additional Lab and Data: . Microbiology and Other Data: Microbiology 04/02/18 16:10 Gram Stain - Final Foot Right Assess/Plan/Problems-Billing Assessment: Mr. Montero is an 82 yo male with PMH significant for HTN and DM2 who presented to the hospital with a right foot non-healing ulcer found with osteomyelitis - Patient Problems (1) Osteomyelitis Comment: With associated abscess Plan for OR tomorrow - I&D v. amputation Vancomycin goal 15-20 (2) Excoriation (skin-picking) disorder Comment: face high risk for cellulitis declining any type of intervention (cover, benadryl, medication) (3) Hyperkalemia Comment: Hold home lisinopril repeat in AM (4) Diabetes Comment: HbA1c 6.9% this visit Start lispro SS low dose tomorrow (5) LINK (acute kidney injury) Comment: c/w NS 75cc/hr (6) HTN (hypertension) Comment: - Continue to hold lisinopril in the setting of hyperkalemia - Continue hydralazine PRN (7) DVT prophylaxis Comment: - SQ heparin Status and Disposition: Inpatient. Discharge to home when medically stable.
[2018-04-04] MEDS ORDERED: Dextrose 50% Syringe 50 ML* 25 GM/50 ML SYRINGE IV PUSH PRN (16:08)
[2018-04-04] MEDS: busPIRone TAB* 10 MG PO SCH (20:05)
[2018-04-04] MEDS: Vancomycin(*) 1,000 MG in NS 0.9% 250 ML* 250 ML IVPB SCH (20:11)
[2018-04-05] MEDS: oxyCODONE/Acetamin 5/325 MG* TAB PO PRN ×4 (00:37→21:29)
[2018-04-05] MEDS: Omeprazole CAP* 20 MG PO SCH (05:51)
[2018-04-05] MEDS: busPIRone TAB* 10 MG PO SCH ×3 (07:07→21:26)
[2018-04-05] MEDS: NS 0.9% 1000 ML* 1,000 ML IV SCH (07:22)
--- NOTE | 2018-04-05 09:46 | PN ---
Progress Note - Progress Note Date of Service: 04/05/18 SOAP: Subjective: CC: right foot infection HPI: 82 yo man with CKD, right foot ulcer, pain, redness. Pain a little better keeping elevated. No fever, rash, or diarrhea. Surgery today. Objective: Vital Signs Temp 36.9 C 04/05/18 07:50 Pulse 58 04/05/18 07:50 Resp 16 04/05/18 08:00 BP 119/61 04/05/18 07:50 Pulse Ox 99 04/05/18 07:50 Intake & Output 04/04/18 04/05/18 04/05/18 18:59 06:59 18:59 Intake Total 1695 1530 Output Total 0 Balance 1695 1530 Intake: IV Fluids 525 1050 ABX - VANCOMYCIN 250 NS (0.9%) 525 800 Oral 1170 480 Output: Urine 0 Other: Date of Last Bowel 04/04/18 04/04/18 Movement # Bowel Movements 1 1 # Voids 2 Gen:awake, no distress HEENT: no thrush Heart:RRR no murmur Lungs:CTA BL Abd:+BS NTND soft Skin: no rash MSK: R foot wrapped Microbiology 04/02/18 16:10 Foot Right Gram Stain - Final 04/02/18 16:10 Foot Right Wound Culture - Final MRSA 04/02/18 16:27 Blood Venous Aerobic Blood Culture - Preliminary No Growth Day 2 04/02/18 16:27 Blood Venous Anaerobic Blood Culture - Preliminary No Growth Day 2 04/02/18 16:10 Blood Venous Aerobic Blood Culture - Preliminary No Growth Day 2 04/02/18 16:10 Blood Venous Anaerobic Blood Culture - Preliminary No Growth Day 2 Assessment: 1. 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 chronic kidney disease 3. T2DM Plan: 1. continue vancomycin goal tr 15-20, trough pending. I&D today. 6-8 weeks abx , IV initially. OK for PICC.
[2018-04-05] MEDS ORDERED: Lidocaine 2% PF * 5 ML VIAL ONE (12:44)
[2018-04-05] MEDS ORDERED: KETAMINE HCL* 50 MG/ML 10 ML VIAL ONE (12:44)
[2018-04-05] MEDS ORDERED: Midazolam* 1 MG/ML 10 ML VIAL (10 MG) ONE (12:44)
[2018-04-05] MEDS ORDERED: fentaNYL* 50 MCG/ML 2 ML VIAL (100 MCG VIAL) ONE ×3 (12:44→15:05)
[2018-04-05] MEDS ORDERED: Dexamethasone IV* 4 MG/ML 1 ML (4 MG) ONE (12:44)
[2018-04-05] MEDS ORDERED: Propofol* 10 MG/ML 20 ML BTL IV PUSH ONE (12:44)
[2018-04-05] MEDS ORDERED: Ondansetron ODT TAB* 4 MG ONE (12:44)
[2018-04-05] MEDS ORDERED: EPHEDrine (Pressors)* 50 MG/ML VIAL ONE (13:56)
[2018-04-05] MEDS ORDERED: Bupivacaine 0.5% SDV PF* 30ML VIAL ONE (14:06)
[2018-04-05] MEDS ORDERED: DiMENhydriNATE IV* 50 MG/ML VIAL IV PUSH PRN (14:14)
[2018-04-05] MEDS ORDERED: Naloxone* 0.4 MG/ML 1 ML VIAL IV PRN (14:14)
[2018-04-05] MEDS: fentaNYL* 50 MCG/ML 2 ML VIAL (100 MCG VIAL) IV PRN ×5 (14:35→15:14)
--- NOTE | 2018-04-05 14:41 | OP ---
Operative Report - Blank - Operative Report Date of Operation: 04/05/18 Note: PATIENT: Federico Montero DATE OF : 1935 DATE OF SURGERY: 04/05/2018 SURGEON: Aung Royal MD WOOD STAINER: POOJA Waters, whos assistance was necessary for positioning, retraction, help with instrumentation, and closure. ANESTHESIOLOGIST: Dr. Ackerman PREOPERATIVE DIAGNOSIS: Right foot ulcer and deep infection with abscess and osteomyelitis POSTOPERATIVE DIAGNOSIS: Right foot ulcer and deep infection with abscess and osteomyelitis OPERATION: 1. Irrigation and debridement of right deep foot infection 2. Placement of a wound VAC ANESTHESIA: GETA IMPLANTS: none TOURNIQUET TIME: Less than one hour with an ankle Esmarch tourniquet SPECIMENS: Cultures from deep abscess sent to micro ESTIMATED BLOOD LOSS: Minimal COMPLICATIONS: none STATUS: Stable from the operating room to the recovery room and then back to the hospital floor. INDICATIONS FOR PROCEDURE: Federico has had a dorsal foot ulcer with worsening infection for the last month. We discussed various treatment options as documented in his chart. He elected to move forward with an irrigation and debridement and wound VAC placement. Both operative and non-operative treatment alternatives were reviewed. Further, the nature and risks of surgery were reviewed in careful detail, in the office as well as the pre-operative holding area. Our discussions regarding the risks of surgery included, but were not limited to, worsening and persistent infection , wound problems, nerve injury, neuroma, RSD, persistent symptoms, blood clot, failure of the surgery, need for further surgery, need for amputation. DESCRIPTION OF PROCEDURE: The patient was seen in the preoperative holding unit and informed written consent was obtained. The appropriate extremity was marked. The patient was then brought to the operating room and carefully positioned on the operating room table. Anesthesia was induced. All bony prominences were padded with great care. A chlorhexidine based pre-scrub was performed followed by a chloraprep prep and drape in standard sterile fashion. A surgical safety pause was then conducted in which we confirmed the appropriate patient, extremity, planned procedure, availability of equipment, indication and administration antibiotics , and DVT prophylaxis in the form of a compression boot on the non-surgical extremity. I began by placing an ankle Esmarch tourniquet. I then incised the edges of the ulcer to get to a clean stable rim. The ulcer measured 4 cm in width, 2 cm in length, 0.5 cm in depth. I then sharply debrided the ulcer bed with a 15 blade scalpel. The ulcer went deep to the level of the EHL tendon but did not track directly to the first MTP joint. There was a track laterally around the first metatarsal head. I made a longitudinal incision in the 1-2 webspace. I used blunt dissection to dissect between the first and second metatarsals to get to the plantar aspect of the foot. I encountered a large abscess with janell pus. I sent culture swabs from this pus. The pocket did track proximally to about the area of the metatarsal bases. I sharply debrided any nonviable and infected-appearing tissue with Metzenbaum scissors. This included the skin, subcutaneous tissue, fascial layer, and subfascial muscle. I then used the cystoscopy tubing and sterile saline to copiously irrigate both the ulcer and the plantar pocket of the foot. Afterwards, all remaining tissue appeared healthy and viable. A closed part of the incision with 3-0 Prolene suture. I then placed a wound VAC and the remaining wound and into the ulcer bed. This had good suction. The patient was then awakened from anesthesia and transferred to the recovery room in stable condition. There were no complications. All needle and sponge counts were correct at the end of the case. ATTESTATION: I attest I was present and scrubbed and performed the critical portions of the procedure myself. POSTOPERATIVE PLAN: He will need VAC changes every 3 days. He will continue on antibiotics as guided by the infectious disease service.
--- NOTE | 2018-04-05 15:58 | PN ---
Subjective Date of Service: 04/05/18 Interval History: Seen prior to OR today Incision and drainage with wound vac place by Dr. Royal Pt anxious this AM No other complaints Family History: Unchanged from Admission Social History: Unchanged from Admission Past Medical History: Unchanged from Admission Objective Active Medications: Acetaminophen (Tylenol Tab*) 650 mg PO Q6H PRN PRN Reason: Pain/fever Buspirone HCl (Buspar Tab*) 10 mg PO TID [facility] Last Admin: 04/05/18 13:21 Dose: Not Given Dextrose (D50w Syringe 50 Ml*) 12.5 gm IV PUSH .FOR FS < 60 - SS PRN PRN Reason: FS < 60 Hydralazine HCl (Apresoline Iv*) 5 mg IV SLOW PU Q6H PRN PRN Reason: SBP > 180 Vancomycin HCl 1,000 mg/ (Sodium Chloride) 250 mls @ 166.667 mls/hr IVPB Q24H [facility] Last Admin: 04/04/18 20:11 Dose: 166.667 mls/hr Sodium Chloride (Ns 0.9% 1000 Ml*) 1,000 mls @ 75 mls/hr IV PER RATE [facility] Last Admin: 04/05/18 07:22 Dose: 75 mls/hr Insulin Human Lispro (Humalog*) 0 units SUBCUT ACHS [facility]; Protocol Morphine Sulfate (Morphine Vial*) 4 mg IV Q4H PRN PRN Reason: PAIN Last Admin: 04/02/18 23:58 Dose: 4 mg Omeprazole (Prilosec Cap*) 20 mg PO DAILY@0600 [facility] Last Admin: 04/05/18 05:51 Dose: 20 mg Ondansetron HCl (Zofran 40 Mg Vial*) 4 mg IV Q6H PRN PRN Reason: NAUSEA Last Admin: 04/03/18 02:19 Dose: 4 mg Oxycodone/Acetaminophen (Percocet 5/325 Tab*) 1 tab PO Q4H PRN PRN Reason: PAIN Last Admin: 04/03/18 14:22 Dose: 1 tab Oxycodone/Acetaminophen (Percocet 5/325 Tab*) 2 tab PO Q4H PRN PRN Reason: PAIN Last Admin: 04/05/18 15:45 Dose: 2 tab Pharmacy Consult (Vancomycin Per Pharmacy*) 1 note FOLLOW UP .VANC PER PHARMACY [facility] Pharmacy Profile Note (Vancomycin Trough Check) 1 note FOLLOW UP 2030 ONE Stop: 04/05/18 20:31 Vital Signs - 8 hr 04/05/18 04/05/18 04/05/18 08:00 14:23 14:33 Temperature 97.0 F Pulse Rate 85 Respiratory 16 16 Rate Blood Pressure 129/78 (mmHg) O2 Sat by Pulse 100 Oximetry 04/05/18 04/05/18 04/05/18 14:35 14:36 14:37 Temperature Pulse Rate 81 78 Respiratory 16 14 21 Rate Blood Pressure 119/78 (mmHg) O2 Sat by Pulse 100 Oximetry 04/05/18 04/05/18 04/05/18 14:41 14:45 14:50 Temperature Pulse Rate 79 71 Respiratory 28 20 18 Rate Blood Pressure 113/90 140/81 (mmHg) O2 Sat by Pulse 100 100 Oximetry 04/05/18 04/05/18 04/05/18 14:51 14:55 15:00 Temperature Pulse Rate 67 66 67 Respiratory 20 20 15 Rate Blood Pressure 110/80 144/79 (mmHg) O2 Sat by Pulse 100 100 100 Oximetry 04/05/18 04/05/18 04/05/18 15:01 15:07 15:14 Temperature Pulse Rate 64 Respiratory 19 16 16 Rate Blood Pressure 132/71 (mmHg) O2 Sat by Pulse 100 Oximetry 04/05/18 04/05/18 04/05/18 15:15 15:40 15:45 Temperature Pulse Rate 62 66 Respiratory 22 12 12 Rate Blood Pressure 129/75 126/70 (mmHg) O2 Sat by Pulse 100 99 Oximetry 04/05/18 15:48 Temperature 97.9 F Pulse Rate 66 Respiratory 12 Rate Blood Pressure 126/70 (mmHg) O2 Sat by Pulse 99 Oximetry Oxygen Devices in Use Now: None Appearance: NAD Eyes: No Scleral Icterus, PERRLA Ears/Nose/Mouth/Throat: NL Teeth, Lips, Gums, Clear Oropharnyx Neck: NL Appearance and Movements; NL JVP, Trachea Midline Respiratory: Symmetrical Chest Expansion and Respiratory Effort, Clear to Auscultation Cardiovascular: NL Sounds; No Murmurs; No JVD, RRR Abdominal: NL Sounds; No Tenderness; No Distention, No Hepatosplenomegaly Lymphatic: No Cervical Adenopathy Extremities: No Edema Skin: - - foot wrapped, face with multiple exoriations from scratching Neurological: Alert and Oriented x 3 Result Diagrams: 04/03/18 08:22 04/04/18 06:38 Additional Lab and Data: . Microbiology and Other Data: Microbiology 04/02/18 16:10 Gram Stain - Final Foot Right Assess/Plan/Problems-Billing Assessment: Mr. Montero is an 82 yo male with PMH significant for HTN and DM2 who presented to the hospital with a right foot non-healing ulcer found with osteomyelitis and abscess - Patient Problems (1) Osteomyelitis Comment: With associated abscess s/p I&D and wound vac placement with Dr. Royal 04/05 Vancomycin goal 15-20 cultures obtained from abscess during I&D (2) Excoriation (skin-picking) disorder Comment: face high risk for cellulitis declining any type of intervention (cover, benadryl, medication) (3) Hyperkalemia Comment: Hold home lisinopril repeat in AM (4) Diabetes Comment: HbA1c 6.9% this visit Start lispro SS low dose (5) LINK (acute kidney injury) Comment: c/w NS 75cc/hr (6) HTN (hypertension) Comment: - Continue to hold lisinopril in the setting of hyperkalemia - Continue hydralazine PRN (7) DVT prophylaxis Comment: - SQ heparin Status and Disposition: Inpatient. Discharge to home when medically stable.
[2018-04-05] MEDS: Insulin LISPRO* 1 UNITS UNIT SUBCUT SCH ×2 (16:35→21:25)
[2018-04-05] MEDS ORDERED: Vancomycin Trough Check NOTE FOLLOW UP ONE (20:30)
[2018-04-05] MEDS: Vancomycin(*) 1,000 MG in NS 0.9% 250 ML* 250 ML IVPB SCH (21:33)
[2018-04-06] MEDS: oxyCODONE/Acetamin 5/325 MG* TAB PO PRN ×5 (02:43→21:45)
[2018-04-06] MEDS: NS 0.9% 1000 ML* 1,000 ML IV SCH (05:28)
[2018-04-06] MEDS: Omeprazole CAP* 20 MG PO SCH (05:55)
[2018-04-06 07:01] LABS: Hematocrit 32 % (42-52); Hemoglobin 10.9 g/dl (14.0-18.0); Mean Corpuscular HGB Conc 34 g/dl (31-36); Mean Corpuscular Hemoglobin 30 pg (27-31); Mean Corpuscular Volume 88 fL (80-94); Mean Platelet Volume 7.2 um3 (7.4-10.4); Platelet Count 498 10^3/ul (150-450); Red Blood Count 3.68 10^6/ul (4.00-5.40); Red Cell Distribution Width 15 % (10.5-15); White Blood Count 9.7 10^3/ul (3.5-10.8)
[2018-04-06 07:26] LABS: EGFR Non-African American 63.7 (>60)
[2018-04-06] MEDS: busPIRone TAB* 10 MG PO SCH ×3 (08:42→21:45)
[2018-04-06] MEDS: Insulin LISPRO* 1 UNITS UNIT SUBCUT SCH ×4 (08:47→21:22)
[2018-04-06] MEDS ORDERED: NS 0.9% 250 ML* 250 ML ONE (08:56)
[2018-04-06] MEDS: Vancomycin(*) 1,000 MG in NS 0.9% 250 ML* 250 ML IVPB SCH ×2 (09:01→21:45)
--- NOTE | 2018-04-06 09:24 | PN ---
Progress Note - Progress Note Date of Service: 04/06/18 SOAP: Subjective: Mr. Montero is post I&D right foot for osteomyelitis and abscess with wound vac placement with Dr. Royal on 04/05/18. Patient states pain not well controlled with wound vac. Would like to go home soon. Denies CP, calf pain, SOB, N/V, F/C. Objective: Vital Signs Temp 97.3 F 04/06/18 07:18 Pulse 68 04/06/18 07:18 Resp 18 04/06/18 07:27 BP 119/60 04/06/18 07:18 Pulse Ox 98 04/06/18 07:18 Intake & Output 04/05/18 04/06/18 04/06/18 18:59 06:59 18:59 Intake Total 2060 955 600 Output Total 0 420 Balance 2060 955 180 Intake: IV Fluids 1400 250 ABX - VANCOMYCIN 250 LR 800 NS (0.9%) 600 IVPB 300 225 ABX - VANCOMYCIN 300 NS (0.9%) 225 Oral 360 480 600 Output: Urine 0 420 Other: # Bowel Movements 0 # Voids 3 Laboratory Results - last 24 hr 04/05/18 04/05/18 04/05/18 12:11 14:38 16:34 WBC RBC Hgb Hct MCV MCH MCHC RDW Plt Count MPV Sodium Potassium Chloride Carbon Dioxide Anion Gap BUN Creatinine Est GFR ( Amer) Est GFR (Non-Af Amer) BUN/Creatinine Ratio Glucose POC Glucose (mg/dL) 105 H 108 H 127 H Calcium Vancomycin Trough 04/05/18 04/05/18 04/06/18 20:33 21:21 06:51 WBC 9.7 RBC 3.68 L Hgb 10.9 L Hct 32 L MCV 88 MCH 30 MCHC 34 RDW 15 Plt Count 498 H MPV 7.2 L Sodium Potassium Chloride Carbon Dioxide Anion Gap BUN Creatinine Est GFR ( Amer) Est GFR (Non-Af Amer) BUN/Creatinine Ratio Glucose POC Glucose (mg/dL) 215 H Calcium Vancomycin Trough 8.6 04/06/18 04/06/18 06:51 07:33 WBC RBC Hgb Hct MCV MCH MCHC RDW Plt Count MPV Sodium 137 Potassium 5.1 H Chloride 106 Carbon Dioxide 25 Anion Gap 6 BUN 19 Creatinine 1.11 Est GFR ( Amer) 77.1 Est GFR (Non-Af Amer) 63.7 BUN/Creatinine Ratio 17.1 Glucose 168 H POC Glucose (mg/dL) 151 H Calcium 8.4 L Vancomycin Trough General: WN, WD, AO, NAD, excoriations on face and arms. RLE: No significant erythema, moderate swelling in foot. Wound vac intact and active. Able to wiggle toes, +DF/PF, brisk capillary refill, SITLT. Assessment: POD #1 S/P I&D right foot with wound vac placement with Dr. Royal on 04/05/18 Plan: - Continue IV antibiotics per ID, currently vanc - Patient not taking max pain medications, encouraged communication with nurse for pain control - PT/OT - Wound vac change every three days - DVT prophylaxis SQ heprin per Medicine
[2018-04-06] MEDS: Lactobacillus Acidophilus* 1 TAB PO SCH ×2 (12:13→21:45)
--- NOTE | 2018-04-06 16:10 | PN ---
Subjective Date of Service: 04/06/18 Interval History: Pain well controlled when in bed Anxious to go home. We discussed the need for group home abx including IV PICC order placed and discussed with patient Family History: Unchanged from Admission Social History: Unchanged from Admission Past Medical History: Unchanged from Admission Objective Active Medications: Acetaminophen (Tylenol Tab*) 650 mg PO Q6H PRN PRN Reason: Pain/fever Buspirone HCl (Buspar Tab*) 10 mg PO TID [facility] Last Admin: 04/06/18 14:34 Dose: 10 mg Dextrose (D50w Syringe 50 Ml*) 12.5 gm IV PUSH .FOR FS < 60 - SS PRN PRN Reason: FS < 60 Heparin Sodium (Porcine) (Heparin Vial(*)) 5,000 units SUBCUT Q8HR [facility] Hydralazine HCl (Apresoline Iv*) 5 mg IV SLOW PU Q6H PRN PRN Reason: SBP > 180 Vancomycin HCl 1,000 mg/ (Sodium Chloride) 250 mls @ 166.667 mls/hr IVPB Q12H [facility] Last Admin: 04/06/18 09:01 Dose: 166.667 mls/hr Insulin Human Lispro (Humalog*) 0 units SUBCUT ACHS [facility]; Protocol Last Admin: 04/06/18 12:03 Dose: Not Given Lactobacillus Rhamnosus (Lactobacillus Acidophilus*) 1 tab PO BID [facility] Last Admin: 04/06/18 12:13 Dose: 1 tab Morphine Sulfate (Morphine Vial*) 4 mg IV Q4H PRN PRN Reason: PAIN Last Admin: 04/02/18 23:58 Dose: 4 mg Omeprazole (Prilosec Cap*) 20 mg PO DAILY@0600 [facility] Last Admin: 04/06/18 05:55 Dose: 20 mg Ondansetron HCl (Zofran 40 Mg Vial*) 4 mg IV Q6H PRN PRN Reason: NAUSEA Last Admin: 04/03/18 02:19 Dose: 4 mg Oxycodone/Acetaminophen (Percocet 5/325 Tab*) 1 tab PO Q4H PRN PRN Reason: PAIN Last Admin: 04/05/18 21:29 Dose: 1 tab Oxycodone/Acetaminophen (Percocet 5/325 Tab*) 2 tab PO Q4H PRN PRN Reason: PAIN Last Admin: 04/06/18 12:10 Dose: 2 tab Pharmacy Consult (Vancomycin Per Pharmacy*) 1 note FOLLOW UP .VANC PER PHARMACY [facility] Pharmacy Profile Note (Vancomycin Trough Check) 1 note FOLLOW UP 0830 ONE Stop: 04/07/18 08:31 Vital Signs - 8 hr 04/06/18 04/06/18 04/06/18 10:56 12:10 12:14 Temperature 97.7 F Pulse Rate 65 Respiratory 18 19 18 Rate Blood Pressure 122/75 (mmHg) O2 Sat by Pulse 97 Oximetry 04/06/18 14:43 Temperature Pulse Rate Respiratory 17 Rate Blood Pressure (mmHg) O2 Sat by Pulse Oximetry Oxygen Devices in Use Now: None Appearance: NAD Eyes: No Scleral Icterus, PERRLA Ears/Nose/Mouth/Throat: NL Teeth, Lips, Gums, Clear Oropharnyx Neck: NL Appearance and Movements; NL JVP, Trachea Midline Respiratory: Symmetrical Chest Expansion and Respiratory Effort, Clear to Auscultation Cardiovascular: NL Sounds; No Murmurs; No JVD, RRR Abdominal: NL Sounds; No Tenderness; No Distention, No Hepatosplenomegaly Lymphatic: No Cervical Adenopathy Extremities: No Edema Skin: - - wound vac in placed right foot Neurological: Alert and Oriented x 3 Result Diagrams: 04/06/18 06:51 04/06/18 06:51 Additional Lab and Data: . Microbiology and Other Data: Microbiology 04/02/18 16:10 Gram Stain - Final Foot Right Assess/Plan/Problems-Billing Assessment: Mr. Montero is an 82 yo male with PMH significant for HTN and DM2 who presented to the hospital with a right foot non-healing ulcer found with osteomyelitis and abscess s/p I&D and wound vac placement - Patient Problems (1) Osteomyelitis Comment: With associated abscess s/p I&D and wound vac placement with Dr. Royal 04/05 Vancomycin goal 15-20 cultures obtained from abscess during I&D wound vac change q3 days PICC placement. Patient would prefer to go home and manage if able (2) Excoriation (skin-picking) disorder Comment: face high risk for cellulitis declining any type of intervention (cover, benadryl, medication) (3) Hyperkalemia Comment: Hold home lisinopril stable repeat in AM (4) Diabetes Comment: HbA1c 6.9% this visit Start lispro SS low dose start metformin 500 BID 04/06 (5) LINK (acute kidney injury) Comment: resolved with NS fluids stopped 04/06 (6) HTN (hypertension) Comment: - Continue to hold lisinopril in the setting of hyperkalemia - hydralazine PRN (has needed none) (7) DVT prophylaxis Comment: - SQ heparin Status and Disposition: Inpatient. Plan on PICC placement the dc home when home services arranged for wound vac and IV abx next week
[2018-04-06] MEDS: metFORMIN* 500 MG TAB PO SCH (17:12)
[2018-04-06] MEDS: Heparin VIAL(*) 5000 UNITS/ML VIAL (FIVE THOUSAND) SUBCUT SCH (21:45)
[2018-04-07] MEDS: oxyCODONE/Acetamin 5/325 MG* TAB PO PRN ×5 (02:02→20:34)
[2018-04-07] MEDS: Heparin VIAL(*) 5000 UNITS/ML VIAL (FIVE THOUSAND) SUBCUT SCH ×3 (06:14→23:04)
[2018-04-07] MEDS: Omeprazole CAP* 20 MG PO SCH (06:14)
[2018-04-07] MEDS ORDERED: Vancomycin Trough Check NOTE FOLLOW UP ONE (08:30)
[2018-04-07 08:54] LABS: EGFR Non-African American 72.7 (>60)
[2018-04-07] MEDS: Insulin LISPRO* 1 UNITS UNIT SUBCUT SCH ×4 (08:59→20:48)
[2018-04-07] MEDS: Lactobacillus Acidophilus* 1 TAB PO SCH ×2 (09:01→20:35)
[2018-04-07] MEDS: metFORMIN* 500 MG TAB PO SCH ×2 (09:01→17:12)
[2018-04-07] MEDS: busPIRone TAB* 10 MG PO SCH ×3 (09:01→20:35)
--- NOTE | 2018-04-07 09:25 | PN ---
Progress Note - Progress Note Date of Service: 04/07/18 SOAP: Subjective: POD #2 Right foot debridement with VAC placement. States that he is doing ok, c/ o mild pain. Awaiting PICC placement prior to d/c home. Denies CP/SOB, f/c or calf pain Objective: Vitals: Temp Pulse Resp BP Pulse Ox 97.5 F 55 18 118/82 98 04/07/18 07:58 04/07/18 07:58 04/07/18 08:57 04/07/18 07:58 04/07/18 08:00 Gen: A&Ox3, NAD at rest sitting at bedside RLE: VAC dressing intact with good suction. Edema and ecchymosis to dorsal foot , mild ttp. N/V intact Labs: Laboratory Results - last 24 hr 04/06/18 04/06/18 04/06/18 11:36 16:36 21:01 Sodium Potassium Chloride Carbon Dioxide Anion Gap BUN Creatinine Est GFR ( Amer) Est GFR (Non-Af Amer) BUN/Creatinine Ratio Glucose POC Glucose (mg/dL) 88 99 104 H Calcium Vancomycin Trough 04/07/18 04/07/18 04/07/18 07:50 08:22 08:22 Sodium 137 Potassium 4.5 Chloride 104 Carbon Dioxide 26 Anion Gap 7 BUN 20 Creatinine 0.99 Est GFR ( Amer) 88.0 Est GFR (Non-Af Amer) 72.7 BUN/Creatinine Ratio 20.2 H Glucose 90 POC Glucose (mg/dL) 81 Calcium 8.5 L Vancomycin Trough 17.5 Assessment: POD #2 Right foot debridement with VAC placement Plan: Cont IV abx per ID VAC change tomorrow prior to d/c home Cont DVT ppx per medicine Cont Heel WBAT RLE with post op shoe, elevate frequently at rest
[2018-04-07] MEDS: Vancomycin(*) 1,000 MG in NS 0.9% 250 ML* 250 ML IVPB SCH ×2 (09:35→20:36)
[2018-04-07] MEDS: Polyethylene Glycol 3350* 17 GM PACKET PO SCH (10:27)
--- NOTE | 2018-04-07 14:02 | PN ---
Subjective Date of Service: 04/07/18 Interval History: Pt feels well. c/o post op pain in left foot Family History: Unchanged from Admission Social History: Unchanged from Admission Past Medical History: Unchanged from Admission Objective Active Medications: Acetaminophen (Tylenol Tab*) 650 mg PO Q6H PRN PRN Reason: Pain/fever Buspirone HCl (Buspar Tab*) 10 mg PO TID [facility] Last Admin: 04/07/18 13:56 Dose: 10 mg Dextrose (D50w Syringe 50 Ml*) 12.5 gm IV PUSH .FOR FS < 60 - SS PRN PRN Reason: FS < 60 Heparin Sodium (Porcine) (Heparin Vial(*)) 5,000 units SUBCUT Q8HR [facility] Last Admin: 04/07/18 13:56 Dose: 5,000 units Hydralazine HCl (Apresoline Iv*) 5 mg IV SLOW PU Q6H PRN PRN Reason: SBP > 180 Vancomycin HCl 1,000 mg/ (Sodium Chloride) 250 mls @ 166.667 mls/hr IVPB Q12H [facility] Last Admin: 04/07/18 09:35 Dose: 166.667 mls/hr Insulin Human Lispro (Humalog*) 0 units SUBCUT ACHS [facility]; Protocol Last Admin: 04/07/18 11:33 Dose: Not Given Lactobacillus Rhamnosus (Lactobacillus Acidophilus*) 1 tab PO BID [facility] Last Admin: 04/07/18 09:01 Dose: 1 tab Metformin HCl (Glucophage*) 500 mg PO 0800,1700 [facility] Last Admin: 04/07/18 09:01 Dose: 500 mg Morphine Sulfate (Morphine Vial*) 4 mg IV Q4H PRN PRN Reason: PAIN Last Admin: 04/02/18 23:58 Dose: 4 mg Omeprazole (Prilosec Cap*) 20 mg PO DAILY@0600 [facility] Last Admin: 04/07/18 06:14 Dose: 20 mg Ondansetron HCl (Zofran 40 Mg Vial*) 4 mg IV Q6H PRN PRN Reason: NAUSEA Last Admin: 04/03/18 02:19 Dose: 4 mg Oxycodone/Acetaminophen (Percocet 5/325 Tab*) 1 tab PO Q4H PRN PRN Reason: PAIN Last Admin: 04/05/18 21:29 Dose: 1 tab Oxycodone/Acetaminophen (Percocet 5/325 Tab*) 2 tab PO Q4H PRN PRN Reason: PAIN Last Admin: 04/07/18 10:27 Dose: 2 tab Pharmacy Consult (Vancomycin Per Pharmacy*) 1 note FOLLOW UP .VANC PER PHARMACY [facility] Polyethylene Glycol/Electrolytes (Miralax*) 17 gm PO DAILY [facility] Last Admin: 04/07/18 10:27 Dose: 17 gm Vital Signs - 8 hr 04/07/18 04/07/18 04/07/18 06:14 07:58 08:00 Temperature 97.5 F Pulse Rate 55 Respiratory 18 18 18 Rate Blood Pressure 118/82 (mmHg) O2 Sat by Pulse 98 98 Oximetry 04/07/18 04/07/18 04/07/18 08:57 10:27 12:12 Temperature 98.0 F Pulse Rate 62 Respiratory 18 18 16 Rate Blood Pressure 107/68 (mmHg) O2 Sat by Pulse 98 Oximetry 04/07/18 12:13 Temperature Pulse Rate Respiratory 17 Rate Blood Pressure (mmHg) O2 Sat by Pulse Oximetry Oxygen Devices in Use Now: None Appearance: 82 yo M in nAD, aAOx3 Eyes: No Scleral Icterus, PERRLA Ears/Nose/Mouth/Throat: NL Teeth, Lips, Gums, Mucous Membranes Moist Neck: NL Appearance and Movements; NL JVP, Trachea Midline Respiratory: Symmetrical Chest Expansion and Respiratory Effort, Clear to Auscultation Cardiovascular: NL Sounds; No Murmurs; No JVD, RRR Abdominal: NL Sounds; No Tenderness; No Distention Lymphatic: No Cervical Adenopathy Extremities: No Edema, No Clubbing, Cyanosis - left foot with vac dressing in place on dorsum of left foot Skin: No Nodules or Sclerosis, - - superficial excoriations on face noted, wound vac on left foot not removed Neurological: Alert and Oriented x 3, NL Muscle Strength and Tone Result Diagrams: 04/06/18 06:51 04/07/18 08:22 Additional Lab and Data: . Microbiology and Other Data: Microbiology 04/02/18 16:10 Gram Stain - Final Foot Right Assess/Plan/Problems-Billing Assessment: Mr. Montero is an 82 yo male with PMH significant for HTN and DM2 who presented to the hospital with a right foot non-healing ulcer found with osteomyelitis and abscess s/p I&D and wound vac placement - Patient Problems (1) Osteomyelitis Comment: With associated abscess s/p I&D and wound vac placement with Dr. Royal 04/05 Vancomycin goal 15-20. MRSA positive wound cx wound vac change q3 days PICC placement. Patient would prefer to go home and manage if able (2) LINK (acute kidney injury) Comment: resolved with NS fluids stopped 04/06 (3) Excoriation (skin-picking) disorder Comment: face high risk for cellulitis declining any type of intervention (cover, benadryl, medication) (4) Hyperkalemia Comment: Holding home lisinopril resolved (5) HTN (hypertension) Comment: - Continue to hold lisinopril in the setting of hyperkalemia - hydralazine PRN (has needed none) (6) DVT prophylaxis Comment: - SQ heparin Status and Disposition: Inpatient. Plan on PICC placement then dc home when home services arranged for wound vac and IV abx next week
[2018-04-08] MEDS: oxyCODONE/Acetamin 5/325 MG* TAB PO PRN ×4 (01:26→18:22)
[2018-04-08] MEDS: Heparin VIAL(*) 5000 UNITS/ML VIAL (FIVE THOUSAND) SUBCUT SCH ×3 (05:41→21:43)
[2018-04-08] MEDS: Omeprazole CAP* 20 MG PO SCH (05:41)
[2018-04-08] MEDS: Insulin LISPRO* 1 UNITS UNIT SUBCUT SCH ×4 (07:31→22:13)
[2018-04-08] MEDS: metFORMIN* 500 MG TAB PO SCH ×2 (08:08→17:27)
[2018-04-08] MEDS: Lactobacillus Acidophilus* 1 TAB PO SCH ×2 (08:08→21:42)
[2018-04-08] MEDS: busPIRone TAB* 10 MG PO SCH ×3 (08:09→21:42)
[2018-04-08] MEDS: Polyethylene Glycol 3350* 17 GM PACKET PO SCH (08:39)
[2018-04-08] MEDS: Vancomycin(*) 1,000 MG in NS 0.9% 250 ML* 250 ML IVPB SCH ×2 (08:57→21:28)
--- NOTE | 2018-04-08 09:25 | PN ---
Progress Note - Progress Note Date of Service: 04/08/18 SOAP: Subjective: POD #3 right foot debridement with VAC placement. C/o pain to foot, otherwise doing ok. Denies CP/SOB, f/c. Objective: Vitals: Temp Pulse Resp BP Pulse Ox 97.9 F 58 17 139/75 98 04/08/18 08:29 04/08/18 08:20 04/08/18 08:38 04/08/18 08:20 04/08/18 08:20 Gen: A&Ox3, NAD at rest RLE: Wound clean with bleeding. Measuring 2cm x 3.5 cm x 1.5 cm. Surrounding erythema and edema improving. +f/e at MTPs, N/V intact Labs: Laboratory Results - last 24 hr 04/07/18 04/07/18 04/07/18 11:31 16:35 20:43 POC Glucose (mg/dL) 98 97 89 04/08/18 07:22 POC Glucose (mg/dL) 89 Assessment: POD #3 right foot debridement Plan: Awaiting PICC for mcc IV abx. OK for d/c once those are set up Needs [facility] services for wound care. VAC must be changed 04/12. Ortho to follow while admitted.
[2018-04-08] MEDS ORDERED: Morphine VIAL* 4 MG/ML VIAL (1 ml vial) IV ONE (09:32)
--- NOTE | 2018-04-08 11:40 | PN ---
Subjective Date of Service: 04/08/18 Interval History: Pt feels well. Pain in left foot controlled with pain meds. Had vac dressing changed today Family History: Unchanged from Admission Social History: Unchanged from Admission Past Medical History: Unchanged from Admission Objective Active Medications: Acetaminophen (Tylenol Tab*) 650 mg PO Q6H PRN PRN Reason: Pain/fever Buspirone HCl (Buspar Tab*) 10 mg PO TID [facility] Last Admin: 04/08/18 08:09 Dose: 10 mg Dextrose (D50w Syringe 50 Ml*) 12.5 gm IV PUSH .FOR FS < 60 - SS PRN PRN Reason: FS < 60 Heparin Sodium (Porcine) (Heparin Vial(*)) 5,000 units SUBCUT Q8HR [facility] Last Admin: 04/08/18 05:41 Dose: 5,000 units Hydralazine HCl (Apresoline Iv*) 5 mg IV SLOW PU Q6H PRN PRN Reason: SBP > 180 Vancomycin HCl 1,000 mg/ (Sodium Chloride) 250 mls @ 166.667 mls/hr IVPB Q12H [facility] Last Admin: 04/08/18 08:57 Dose: 166.667 mls/hr Insulin Human Lispro (Humalog*) 0 units SUBCUT ACHS [facility]; Protocol Last Admin: 04/08/18 07:31 Dose: Not Given Lactobacillus Rhamnosus (Lactobacillus Acidophilus*) 1 tab PO BID [facility] Last Admin: 04/08/18 08:08 Dose: 1 tab Metformin HCl (Glucophage*) 500 mg PO 0800,1700 [facility] Last Admin: 04/08/18 08:08 Dose: 500 mg Omeprazole (Prilosec Cap*) 20 mg PO DAILY@0600 [facility] Last Admin: 04/08/18 05:41 Dose: 20 mg Ondansetron HCl (Zofran 40 Mg Vial*) 4 mg IV Q6H PRN PRN Reason: NAUSEA Last Admin: 04/03/18 02:19 Dose: 4 mg Oxycodone/Acetaminophen (Percocet 5/325 Tab*) 1 tab PO Q4H PRN PRN Reason: PAIN Last Admin: 04/05/18 21:29 Dose: 1 tab Pharmacy Consult (Vancomycin Per Pharmacy*) 1 note FOLLOW UP .VANC PER PHARMACY [facility] Polyethylene Glycol/Electrolytes (Miralax*) 17 gm PO DAILY [facility] Last Admin: 04/08/18 08:39 Dose: Not Given Vital Signs - 8 hr 04/08/18 04/08/18 04/08/18 03:45 03:59 05:41 Temperature 97.5 F Pulse Rate 57 Respiratory 16 18 16 Rate Blood Pressure 136/75 (mmHg) O2 Sat by Pulse 97 Oximetry 04/08/18 04/08/18 04/08/18 08:20 08:29 08:38 Temperature 97.9 F Pulse Rate 58 Respiratory 17 Rate Blood Pressure 139/75 (mmHg) O2 Sat by Pulse 98 Oximetry 04/08/18 04/08/18 10:12 10:41 Temperature Pulse Rate Respiratory 18 18 Rate Blood Pressure (mmHg) O2 Sat by Pulse Oximetry Oxygen Devices in Use Now: None Appearance: 82 yo M in nAD, aAOx3 Eyes: No Scleral Icterus, PERRLA Ears/Nose/Mouth/Throat: NL Teeth, Lips, Gums, Mucous Membranes Moist Neck: NL Appearance and Movements; NL JVP, Trachea Midline Respiratory: Symmetrical Chest Expansion and Respiratory Effort, Clear to Auscultation Cardiovascular: NL Sounds; No Murmurs; No JVD, RRR Abdominal: NL Sounds; No Tenderness; No Distention Lymphatic: No Cervical Adenopathy Extremities: No Edema, No Clubbing, Cyanosis Skin: No Nodules or Sclerosis, - - left foot with vound vac in place on dorsal aspect Neurological: Alert and Oriented x 3, NL Muscle Strength and Tone Result Diagrams: 04/06/18 06:51 04/07/18 08:22 Additional Lab and Data: . Microbiology and Other Data: Microbiology 04/02/18 16:10 Gram Stain - Final Foot Right Assess/Plan/Problems-Billing Assessment: Mr. Montero is an 82 yo male with PMH significant for HTN and DM2 who presented to the hospital with a right foot non-healing ulcer found with osteomyelitis and abscess s/p I&D and wound vac placement - Patient Problems (1) Osteomyelitis Comment: With associated abscess s/p I&D and wound vac placement with Dr. Royal 04/05 Vancomycin goal 15-20. MRSA positive wound cx wound vac change q3 days PICC placement. Patient would prefer to go home and manage if able (2) LINK (acute kidney injury) Comment: resolved with NS fluids stopped 04/06 (3) Excoriation (skin-picking) disorder Comment: face high risk for cellulitis declining any type of intervention (cover, benadryl, medication) (4) Hyperkalemia Comment: Holding home lisinopril resolved (5) HTN (hypertension) Comment: - Continue to hold lisinopril in the setting of hyperkalemia - hydralazine PRN (has needed none) (6) DM type 2 (diabetes mellitus, type 2) Comment: controled cont metformin and ISS (7) DVT prophylaxis Comment: - SQ heparin Status and Disposition: Inpatient. Plan on PICC placement then dc home when home services arranged for wound vac and IV abx
[2018-04-08] MEDS: Acetaminophen TAB* 325 MG PO PRN (21:42)
[2018-04-09] MEDS: Omeprazole CAP* 20 MG PO SCH (06:24)
[2018-04-09] MEDS: Heparin VIAL(*) 5000 UNITS/ML VIAL (FIVE THOUSAND) SUBCUT SCH ×3 (06:25→21:57)
[2018-04-09] MEDS: oxyCODONE/Acetamin 5/325 MG* TAB PO PRN ×3 (06:30→20:18)
[2018-04-09] MEDS: Insulin LISPRO* 1 UNITS UNIT SUBCUT SCH ×4 (08:11→21:59)
[2018-04-09] MEDS: Polyethylene Glycol 3350* 17 GM PACKET PO SCH (08:12)
--- NOTE | 2018-04-09 08:36 | PN ---
Progress Note - Progress Note Date of Service: 04/09/18 SOAP: Subjective: Mr. Montero is POD #4 right foot debridement with VAC placement. C/o pain to foot , otherwise doing ok. Wound vac change on 04/08/18. Patient was waiting for PICC team when seen. He was lying comfortably in bed. VSS overnight. Denies CP/SOB, f /c. Objective: Vital Signs Temp 98.0 F 04/09/18 03:35 Pulse 55 04/09/18 03:35 Resp 20 04/09/18 06:30 BP 128/67 04/09/18 03:35 Pulse Ox 99 04/09/18 03:35 Intake & Output 04/08/18 04/09/18 04/09/18 18:59 06:59 18:59 Intake Total 960 772 Output Total 50 0 Balance 910 772 Intake: IV Fluids 15 NS (0.9%) 15 IVPB 277 ABX - VANCOMYCIN 277 Oral 960 480 Output: Urine 50 0 Other: Estimated Void Medium Date of Last Bowel 04/0804/08/18 Movement # Bowel Movements 1 1 Estimated Stool Amount Medium # Voids 3 2 Laboratory Results - last 24 hr 04/08/18 04/08/18 04/08/18 12:07 16:11 21:54 POC Glucose (mg/dL) 130 H 95 89 04/09/18 07:42 POC Glucose (mg/dL) 110 H General: A&Ox3, NAD at rest, excoriation face and arms. RLE: VAC dressing intact with good suction. Edema and ecchymosis to dorsal foot , mild ttp. +f/e at MTPs, + DF/PF, N/V intact Assessment: POD #4 right foot debridement with VAC placement with Dr. Royal. Plan: - Currently waiting for PICC team and PICC placement for IV abx. D/C planned after placement. - Patient is concerned will be too tired to go home today after procedure. - Needs VNS services for wound care. VAC must be changed 04/12. - Ortho to follow while admitted.
[2018-04-09 08:47] LABS: ABS Basophils 0.1 10^3/ul (0-0.2); ABS Eosinophils 0.4 10^3/ul (0-0.6); ABS Lymphocytes 1.6 10^3/ul (1.0-4.8); ABS Monocytes 0.5 10^3/ul (0-0.8); ABS Neutrophils 5.1 10^3/ul (1.5-7.7); ABS Nucleated RBC 0 10^3/ul; Eosinophil % 4.8 % (0-6); Hematocrit 34 % (42-52); Hemoglobin 11.3 g/dl (14.0-18.0); Mean Corpuscular HGB Conc 33 g/dl (31-36); Mean Corpuscular Hemoglobin 29 pg (27-31); Mean Corpuscular Volume 88 fL (80-94); Mean Platelet Volume 7.2 um3 (7.4-10.4); Nucleated Red Blood Cells % 0; Platelet Count 421 10^3/ul (150-450); Red Blood Count 3.85 10^6/ul (4.00-5.40); Red Cell Distribution Width 15 % (10.5-15); White Blood Count 7.7 10^3/ul (3.5-10.8)
[2018-04-09] MEDS: Vancomycin(*) 1,000 MG in NS 0.9% 250 ML* 250 ML IVPB SCH ×3 (08:58→21:22)
[2018-04-09] MEDS: Lactobacillus Acidophilus* 1 TAB PO SCH ×2 (08:58→20:18)
[2018-04-09] MEDS: metFORMIN* 500 MG TAB PO SCH ×2 (08:58→17:11)
[2018-04-09] MEDS: busPIRone TAB* 10 MG PO SCH ×3 (08:58→20:18)
[2018-04-09] MEDS: Acetaminophen TAB* 325 MG PO PRN ×2 (09:02→23:38)
[2018-04-09 09:09] LABS: EGFR Non-African American 75.4 (>60)
--- NOTE | 2018-04-09 12:34 | PN ---
Progress Note - Progress Note Date of Service: 04/09/18 SOAP: Subjective: CC: right foot infection HPI: 82 yo man with CKD, right foot ulcer, pain, redness. Had I&D. No fever or diarrhea. Objective: Vital Signs Temp 36.7 C 04/09/18 08:25 Pulse 58 04/09/18 08:25 Resp 16 04/09/18 10:32 BP 134/67 04/09/18 08:25 Pulse Ox 98 04/09/18 08:25 Intake & Output 04/08/18 04/09/18 04/09/18 18:59 06:59 18:59 Intake Total 960 772 120 Output Total 50 0 Balance 910 772 120 Intake: IV Fluids 15 NS (0.9%) 15 IVPB 277 ABX - VANCOMYCIN 277 Oral 960 480 120 Output: Urine 50 0 Other: Estimated Void Medium Date of Last Bowel 04/0804/08/18 Movement # Bowel Movements 1 1 Estimated Stool Amount Medium # Voids 3 2 Gen:awake, no distress HEENT: no thrush Heart:RRR no murmur Lungs:CTA BL Abd:+BS NTND soft Skin: no rash MSK: R foot medial forefoot vac no erythema Assessment: 1. 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 chronic kidney disease 3. T2DM Plan: 1. continue vancomycin goal tr 15-20, day ; weekly cbc, cmp, crp, vanco tr ordered. 35 minutes floor time >50% face to face in counseling regarding home antibiotics
--- NOTE | 2018-04-09 12:37 | PN ---
Subjective Date of Service: 04/09/18 Interval History: Pt feels well. concerned about going home with IV antibiotics and Vac dressings but refuses to consider STR Family History: Unchanged from Admission Social History: Unchanged from Admission Past Medical History: Unchanged from Admission Objective Active Medications: Acetaminophen (Tylenol Tab*) 650 mg PO Q6H PRN PRN Reason: Pain/fever Last Admin: 04/09/18 09:02 Dose: 650 mg Buspirone HCl (Buspar Tab*) 10 mg PO TID [facility] Last Admin: 04/09/18 08:58 Dose: 10 mg Dextrose (D50w Syringe 50 Ml*) 12.5 gm IV PUSH .FOR FS < 60 - SS PRN PRN Reason: FS < 60 Heparin Sodium (Porcine) (Heparin Vial(*)) 5,000 units SUBCUT Q8HR [facility] Last Admin: 04/09/18 06:25 Dose: 5,000 units Heparin Sodium (Porcine) (Heparin Flush Picc/Ml/Cvc(*)) 1 - 3 ml FLUSH 0600, 1800 [facility]; Protocol Last Admin: 04/09/18 12:29 Dose: 1 ml Hydralazine HCl (Apresoline Iv*) 5 mg IV SLOW PU Q6H PRN PRN Reason: SBP > 180 Vancomycin HCl 1,000 mg/ (Sodium Chloride) 250 mls @ 166.667 mls/hr IVPB Q12H [facility] Last Admin: 04/09/18 10:43 Dose: 166.667 mls/hr Insulin Human Lispro (Humalog*) 0 units SUBCUT ACHS [facility]; Protocol Last Admin: 04/09/18 08:11 Dose: Not Given Lactobacillus Rhamnosus (Lactobacillus Acidophilus*) 1 tab PO BID [facility] Last Admin: 04/09/18 08:58 Dose: 1 tab Metformin HCl (Glucophage*) 500 mg PO 0800,1700 [facility] Last Admin: 04/09/18 08:58 Dose: 500 mg Omeprazole (Prilosec Cap*) 20 mg PO DAILY@0600 [facility] Last Admin: 04/09/18 06:24 Dose: 20 mg Ondansetron HCl (Zofran 40 Mg Vial*) 4 mg IV Q6H PRN PRN Reason: NAUSEA Last Admin: 04/03/18 02:19 Dose: 4 mg Oxycodone/Acetaminophen (Percocet 5/325 Tab*) 1 tab PO Q4H PRN PRN Reason: PAIN Last Admin: 04/09/18 06:30 Dose: 1 tab Pharmacy Consult (Vancomycin Per Pharmacy*) 1 note FOLLOW UP .VANC PER PHARMACY [facility] Polyethylene Glycol/Electrolytes (Miralax*) 17 gm PO DAILY [facility] Last Admin: 04/09/18 08:12 Dose: Not Given Vital Signs - 8 hr 04/09/18 04/09/18 04/09/18 06:30 08:25 10:32 Temperature 98.0 F Pulse Rate 58 Respiratory 20 16 16 Rate Blood Pressure 134/67 (mmHg) O2 Sat by Pulse 98 Oximetry Oxygen Devices in Use Now: None Appearance: 82 yo M in nAD, aAOx3 Eyes: No Scleral Icterus, PERRLA Ears/Nose/Mouth/Throat: NL Teeth, Lips, Gums, Mucous Membranes Moist Neck: NL Appearance and Movements; NL JVP, Trachea Midline Respiratory: Symmetrical Chest Expansion and Respiratory Effort, Clear to Auscultation Cardiovascular: NL Sounds; No Murmurs; No JVD, RRR Abdominal: NL Sounds; No Tenderness; No Distention Lymphatic: No Cervical Adenopathy Extremities: No Edema, No Clubbing, Cyanosis Skin: No Nodules or Sclerosis, - - R dorsal aspect foot with vac dressing in place, no cellulitis Neurological: Alert and Oriented x 3, NL Muscle Strength and Tone Result Diagrams: 04/09/18 08:39 04/09/18 08:39 Additional Lab and Data: . Microbiology and Other Data: Microbiology 04/02/18 16:10 Gram Stain - Final Foot Right Assess/Plan/Problems-Billing Assessment: Mr. Montero is an 82 yo male with PMH significant for HTN and DM2 who presented to the hospital with a right foot non-healing ulcer found with osteomyelitis and abscess s/p I&D and wound vac placement - Patient Problems (1) Osteomyelitis Comment: With associated abscess s/p I&D and wound vac placement with Dr. Royal 04/05 Vancomycin goal 15-20. MRSA positive wound cx wound vac change q3 days PICC placed today. Patient would prefer to go home and manage if able (2) LINK (acute kidney injury) Comment: resolved with NS fluids stopped 04/06 (3) Excoriation (skin-picking) disorder Comment: face high risk for cellulitis declining any type of intervention (cover, benadryl, medication) (4) Hyperkalemia Comment: Holding home lisinopril resolved (5) HTN (hypertension) Comment: - Continue to hold lisinopril in the setting of hyperkalemia - hydralazine PRN (has needed none) (6) DM type 2 (diabetes mellitus, type 2) Comment: controled cont metformin and ISS (7) DVT prophylaxis Comment: - SQ heparin Status and Disposition: Inpatient. Plan to d/c home tomorrow
[2018-04-10] MEDS: Omeprazole CAP* 20 MG PO SCH (07:34)
[2018-04-10] MEDS: Heparin VIAL(*) 5000 UNITS/ML VIAL (FIVE THOUSAND) SUBCUT SCH ×2 (07:34→14:16)
[2018-04-10] MEDS: busPIRone TAB* 10 MG PO SCH ×2 (07:37→13:59)
[2018-04-10] MEDS: Lactobacillus Acidophilus* 1 TAB PO SCH (07:37)
[2018-04-10] MEDS: metFORMIN* 500 MG TAB PO SCH (07:37)
[2018-04-10] MEDS: Polyethylene Glycol 3350* 17 GM PACKET PO SCH (07:38)
[2018-04-10] MEDS: Insulin LISPRO* 1 UNITS UNIT SUBCUT SCH ×2 (07:48→12:05)
[2018-04-10] MEDS: Vancomycin(*) 1,000 MG in NS 0.9% 250 ML* 250 ML IVPB SCH (09:27)
[2018-04-10] MEDS: oxyCODONE/Acetamin 5/325 MG* TAB PO PRN (10:20)
--- NOTE | 2018-04-10 10:57 | PN ---
Progress Note - Progress Note Date of Service: 04/10/18 SOAP: Subjective: [] Patient seen at bedside. Denies fever, chills or foot pain. Infusion teaching done by [facility], patient does not feel comfortable and request rehab placement. Objective: [] Vital Signs Temp 97.6 F 04/10/18 02:35 Pulse 60 04/10/18 02:35 Resp 18 04/10/18 10:20 BP 140/71 04/10/18 02:35 Pulse Ox 100 04/10/18 02:35 Intake & Output 04/09/18 04/10/18 04/10/18 18:59 06:59 18:59 Intake Total 1155 680 200 Balance 1155 680 200 Intake: IV Fluids 255 280 ABX - VANCOMYCIN 255 280 Oral 900 400 200 Other: Estimated Void Large # Bowel Movements 1 3 Estimated Stool Amount Medium Large # Voids 200 1 Laboratory Last Values WBC 7.7 10^3/ul (3.5-10.8) 04/09/18 08:39 RBC 3.85 10^6/ul (4.00-5.40) L 04/09/18 08:39 Hgb 11.3 g/dl (14.0-18.0) L 04/09/18 08:39 Hct 34 % (42-52) L 04/09/18 08:39 MCV 88 fL (80-94) 04/09/18 08:39 MCH 29 pg (27-31) 04/09/18 08:39 MCHC 33 g/dl (31-36) 04/09/18 08:39 RDW 15 % (10.5-15) 04/09/18 08:39 Plt Count 421 10^3/ul (150-450) 04/09/18 08:39 MPV 7.2 um3 (7.4-10.4) L 04/09/18 08:39 Neut % (Auto) 66.4 % (38-83) 04/09/18 08:39 Lymph % (Auto) 21.0 % (25-47) L 04/09/18 08:39 [place] % (Auto) 6.4 % (0-7) 04/09/18 08:39 Eos % (Auto) 4.8 % (0-6) 04/09/18 08:39 Baso % (Auto) 1.4 % (0-2) 04/09/18 08:39 Absolute Neuts (auto) 5.1 10^3/ul (1.5-7.7) 04/09/18 08:39 Absolute Lymphs (auto) 1.6 10^3/ul (1.0-4.8) 04/09/18 08:39 Absolute Monos (auto) 0.5 10^3/ul (0-0.8) 04/09/18 08:39 Absolute Eos (auto) 0.4 10^3/ul (0-0.6) 04/09/18 08:39 Absolute Basos (auto) 0.1 10^3/ul (0-0.2) 04/09/18 08:39 Absolute Nucleated RBC 0 10^3/ul 04/09/18 08:39 Immature Gran % 10 % (0-9) H 04/02/18 16:10 Neutrophils % 75 % (38-83) 04/02/18 16:10 Band Neutrophils % 10 % (0-8) H 04/02/18 16:10 Lymphocytes % 10 % (25-47) L 04/02/18 16:10 Reactive Lymphs % 1 % (0-6) 04/02/18 16:10 Monocytes % 2 % (0-7) 04/02/18 16:10 Eosinophils % 2 % (0-6) 04/02/18 16:10 Basophils % 0 % (0-2) 04/02/18 16:10 Nucleated RBC % 0 04/09/18 08:39 Abs Neuts (Manual) 6.7 10^3/ul (1.5-7.7) 04/02/18 16:10 Abs Lymphs (Manual) 0.9 10^3/ul (1.0-4.8) L 04/02/18 16:10 Abs Monocytes (Manual) 0.2 10^3/ul (0-0.8) 04/02/18 16:10 Absolute Eos (Manual) 0.2 10^3/ul (0-0.6) 04/02/18 16:10 Abs Basophils (Manual) 0 10^3/ul (0-0.2) 04/02/18 16:10 Normal RBC Morphology Normal (Normal) 04/02/18 16:10 INR (Anticoag Therapy) 1.02 (0.77-1.02) 04/02/18 16:10 APTT 32.8 seconds (26.0-36.3) 04/02/18 16:10 Sodium 138 mmol/L (135-145) 04/09/18 08:39 Potassium 4.2 mmol/L (3.5-5.0) 04/09/18 08:39 Chloride 106 mmol/L (101-111) 04/09/18 08:39 Carbon Dioxide 27 mmol/L (22-32) 04/09/18 08:39 Anion Gap 5 mmol/L (2-11) 04/09/18 08:39 BUN 21 mg/dL (6-24) 04/09/18 08:39 Creatinine 0.96 mg/dL (0.67-1.17) 04/09/18 08:39 Est GFR ( Amer) 91.2 (>60) 04/09/18 08:39 Est GFR (Non-Af Amer) 75.4 (>60) 04/09/18 08:39 BUN/Creatinine Ratio 21.9 (8-20) H 04/09/18 08:39 Glucose 109 mg/dL (70-100) H 04/09/18 08:39 POC Glucose (mg/dL) 110 mg/dL (70-100) H 04/10/18 07:41 Hemoglobin A1c 6.9 % (4.0-5.6) H 04/02/18 16:13 Lactic Acid 1.3 mmol/L (0.5-2.0) 04/02/18 16:10 Calcium 8.6 mg/dL (8.6-10.3) 04/09/18 08:39 Total Bilirubin 0.20 mg/dL (0.2-1.0) 04/02/18 16:10 AST 32 U/L (13-39) 04/02/18 16:10 ALT 29 U/L (7-52) 04/02/18 16:10 Alkaline Phosphatase 159 U/L (34-104) H 04/02/18 16:10 C-Reactive Protein 50.49 mg/L (<8.01) H 04/02/18 16:10 Total Protein 7.6 g/dL (6.4-8.9) 04/02/18 16:10 Albumin 3.6 g/dL (3.2-5.2) 04/02/18 16:10 Globulin 4.0 g/dL (2-4) 04/02/18 16:10 Albumin/Globulin Ratio 0.9 (1-3) L 04/02/18 16:10 Ur Random Creatinine 125.32 mg/dL 04/02/18 18:45 Ur Random Sodium 128 mmol/L 04/02/18 18:45 Vancomycin Trough 17.5 mcg/mL 04/07/18 08:22 General: Well appearing, NAD RLE: Vac in place, dressing CDI. Exposed skin without breakdown or erythema. Wiggles toes, sensation intact and capillary refill less than two seconds distally. BL calves supple, nontender, no erythema or edema. Assessment: []POD #5 right foot debridement with VAC placement with Dr. Royal. Plan: - Rehab, referrals out to [facility]. - VAC must be changed 04/12. - Ortho to follow while admitted.
[2018-04-10 12:04] VITALS: BP 142/69
[2018-04-10] MEDS: Acetaminophen TAB* 325 MG PO PRN (14:16)
--- NOTE | 2018-04-10 15:00 | DS ---
CC: Dr. Fisher; Dr. Aung Royal, Orthopedic Surgery; Dr. Tinajero, Infectious Diseases DISCHARGE SUMMARY: DATE OF ADMISSION: 04/02/18 DATE OF DISCHARGE: 04/10/18 PRIMARY CARE PROVIDER: Dr. Frye. DISCHARGE DIAGNOSES: 1. Osteomyelitis and abscess of the right foot, status post incision, debridement, and placement of wound VAC by Dr. Royal on 04/05/18. 2. Mild hyperkalemia that resulted after the lisinopril was discontinued. SECONDARY DIAGNOSES: 1. Diabetes. 2. Hypertension. Please note that the patient was normotensive during his hospital stay after his lisinopril was discontinued. MEDICATIONS AT DISCHARGE: Include: 1. Vancomycin 1250 mg IV every 12 hours for a total of 40 days. 2. Excedrin 2 tablets every 6 hours p.r.n. 3. Multivitamin 1 tablet daily. 4. Oxycodone/acetaminophen 5/325 mg 1 tablet every 6 hours p.r.n. 5. BuSpar 10 mg 3 times a day. 6. Heparin flushes to PICC line as directed. 7. Acidophilus 1 tablet b.i.d. 8. Metformin 500 mg daily. 9. MiraLAX 17 g daily. DISCHARGE INSTRUCTIONS: The patient is being discharged to [facility] with wound VAC in place. The patient's next wound VAC dressing change is to be performed on 04/12/18 and every 3 days thereafter. During the patient's IV antibiotic treatment, the patient should have weekly CMP , CRP, CBC, and vanc troughs with the results to be sent to Dr. Tinajero. The patient is to see Dr. Royal in the office next week for a followup. The patient also should follow up with Dr. Tinajero in approximately 1 to 2 weeks. LABORATORY DATA AND STUDIES PERFORMED DURING THE HOSPITAL STAY: Included: On 04/09/18, sodium of 138, potassium 4.2, chloride 106, carbon dioxide 27, BUN 21 , creatinine 0.96. The patient's lower extremity MRI obtained on 04/03/18, impression: "Given the clinical context is most consistent with superficial and deep soft tissue infection subjacent to the dorsal skin ulcer with contiguous osteomyelitis involving the first metatarsal sesamoid bones and first proximal phalanx and loculated soft tissues abscess collection with estimated at approximately 13 ml total volume that was noted on right foot." Lower extremity arterial Doppler on 04/03/18, impression: "There is mild bilateral peripheral vascular disease on the basis of the waveform analysis, but the ankle brachial indices fall within normal limits measuring 1.0 bilaterally." CONSULTATIONS DURING THE HOSPITAL STAY: Included: 1. Dr. Tinajero from Infectious Diseases. 2. Dr. Royal from orthopedic service. PROCEDURES PERFORMED: Included incision, debridement, and wound VAC placement performed by Dr. Royal on 04/05/18 of the right foot osteomyelitis and ulcer. HOSPITALIZATION COURSE: Federico Montero is an 82-year-old male with a history of "borderline diabetes," who presented to the hospital complaining of right foot ulcer. The patient was noted to have right foot osteomyelitis. Dr. Royal performed an incision and drainage of the abscess on 04/05/18 with subsequent wound VAC dressing placement. The patient's wound cultures initially obtained grew MRSA. Subsequent blood cultures and wound cultures from the OR were negative growth. Dr. Tinajero saw the patient in consultation and recommended vancomycin treatment for a total of 6 weeks. At the time of discharge, the patient will be requested to continue on vancomycin at 1250 mg every 12 hours for a total of [address] Royal's service recommended for the wound VAC to be changed every 3 days with the first change to be done on 04/12/18. Initially, the patient thought that he could go home and have IV antibiotics continued at home with home services provided, but unfortunately, he did not feel comfortable after teaching was provided to him and his partner that he will be able to do it at home. At that point, the patient [place] [facility] [place]. PHYSICAL EXAMINATION: At the time of discharge, blood pressure 142/69, heart rate of 65 and regular, respiratory rate 18, oxygen saturation 98% on room air, temperature 97.9. General: The patient is a very pleasant 82-year-old male, who is in no acute distress. Alert, awake, and oriented x3. HEENT: Head: Atraumatic, normocephalic. Eyes: Pupils are equal, reactive to light and accommodation. Oropharynx is clear. Mucosa moist. Neck: Supple. No JVD. No bruits bilaterally. Cardiovascular: Regular rate and rhythm. No murmur. Respiratory: Clear to auscultation bilaterally. Abdomen: Soft, nontender. Bowel sounds are present in all 4 quadrants. Extremities: There is no edema. Pulses are +2 bilaterally. No clubbing or cyanosis. On the dorsum of the right foot, the patient has a wound VAC in place that is approximately 3 x 4 cm in area. There is no evidence of overlying cellulitis and there is no evidence of edema. Peripheral pulses are +2 bilaterally. Please note that during the patient's hospital stay, the patient was started on metformin at 500 mg twice a day for his diabetes. His hemoglobin A1c was noted to be 6.9. The day prior to discharge, his glucose level was once at 58 noted at 10:00 p.m. on 04/09/18. Due to that, the patient's metformin dose was lowered to 500 mg once daily only. Please also note that the patient was noted to have mild hyperkalemia with a potassium level of 5.2, which resulted after the patient's lisinopril was held. The patient continued to be normotensive without any blood pressure medications onboard during his hospital stay. Please note that this is a short summary of the patient's hospitalization. Please refer to further medical records for details. TIME SPENT: Approximately 50 minutes was spent on the patient's discharge. Please regard this discharge summary as History and Physical of admission to [facility] [id number]/[facility] #: [id number]
[2018-04-11] MEDS ORDERED: Vancomycin Trough Check NOTE FOLLOW UP ONE (08:30)
== END 2018-04-10 14:30 | DRG 982 ==
LOC: ED 15:03 → MED 18:47
PROVIDERS: ADMIT Internal Medicine; ATTEND Internal Medicine
PROC: 0KBV0ZZ Excision of Right Foot Muscle, Open Approach (ICD-10-PCS; principal; 2018-04-02)
PROC: 02HV33Z Insertion of Infusion Device into Superior Vena Cava, Percutaneous Approach (ICD-10-PCS; 2018-04-06)
DX: E11.69 Type 2 diabetes mellitus with other specified complication (principal); M86.171 Other acute osteomyelitis, right ankle and foot; L03.115 Cellulitis of right lower limb; L02.611 Cutaneous abscess of right foot; N17.9 Acute kidney failure, unspecified; E11.621 Type 2 diabetes mellitus with foot ulcer; L97.519 Non-pressure chronic ulcer of other part of right foot with unspecified severity; A49.02 Methicillin resistant Staphylococcus aureus infection, unspecified site; I73.9 Peripheral vascular disease, unspecified; E11.51 Type 2 diabetes mellitus with diabetic peripheral angiopathy without gangrene; E11.22 Type 2 diabetes mellitus with diabetic chronic kidney disease; F17.210 Nicotine dependence, cigarettes, uncomplicated; N18.9 Chronic kidney disease, unspecified; I12.9 Hypertensive chronic kidney disease with stage 1 through stage 4 chronic kidney disease, or unspecified chronic kidney disease; F42.4 Excoriation (skin-picking) disorder; E87.5 Hyperkalemia; Z79.01 Long term (current) use of anticoagulants; Z79.82 Long term (current) use of aspirin; Z79.84 Long term (current) use of oral hypoglycemic drugs; Z88.4 Allergy status to anesthetic agent; Z91.040 Latex allergy status; Z82.3 Family history of stroke
CPT/HCPCS: 36415; 80048; 80053; 80202; 82570; 83036; 83605; 84300; 85025; 85027; 85610; 85730; 86140; 87040; 87070; 87073; 87077; 87186; 87205; 93922; 99284; A9270-GY; C1751; G8978-GP-CI; G8979-GP-CI; G8980-GP-CI; G8987-GO-CJ; G8988-GO-CH; J1100; J1644; J2250; J2270; J2704; J3010; J3370